=== PATIENT | male | born 1985 | race Caucasian/White ===

== ENCOUNTER 2020-10-12 10:01 | Emergency (ER) | payer SELFPAY ==
[2020-10-12] MEDS ORDERED: NA CHLORIDE 0.9% 1,000 ML ONE (10:22)
[2020-10-12] MEDS ORDERED: FENTANYL CITR 100 MCG/2 ML ONE ×2 (10:22→10:28)
[2020-10-12] MEDS ORDERED: ONDANSETRON 4 MG/2 ML VIAL ONE (10:28)
[2020-10-12] MEDS ORDERED: MIDAZOLAM HCL 2 MG/2 ML INJ ONE (10:31)
[2020-10-12] MEDS ORDERED: propofoL 200 MG/20 ML VIAL IV ONE (10:31)
--- NOTE | 2020-10-12 10:32 | RAD REPORT ---
EXAM DESCRIPTION: RAD - Ankle Left 2 View - 10/12/2020 10:20 am CLINICAL HISTORY: Left ankle pain FINDINGS: Extensive fracture involves the distal tibia and fibula with many bony fragments. Extensive dislocation involves the ankle joint.
--- NOTE | 2020-10-12 10:52 | EDPHYS ---
Physician Documentation [facility] Name: Ousmaen Bishop Age: 35 yrs Sex: Male : 1985 Arrival Date: 10/12/2020 Time: 10:03 Bed 2 Private MD: ED Physician Rogelio Napoles HPI: 10/12 10:03 This 35 yrs old Male presents to ER via Wheelchair with complaints of Trauma jmm Complaint, Leg Injury. 10:03 Trauma demographics: County: The injury occurred in [place]. Mechanism of injury: jmm Fall:. Associated injuries: The patient sustained left ankle. Onset: The symptoms/episode began/occurred acutely, just prior to arrival. This is a 35 year old male with no chronic medical conditions that presents to the ED with a deformity to the left ankle. Patient fell from a ladder approx 5 feet. Eversion noted to the left ankle. Historical: - Allergies: 10:34 No Known Allergies; em - PMHx: 10:34 None; em - PSHx: 10:34 left elbow; em - Immunization history:: Adult Immunizations not up to date. - Immunization history: Last tetanus immunization: - up to date. - Social history:: Smoking status: unknown. ROS: 10:03 Constitutional: Negative for fever, chills, and weight loss, Cardiovascular: Negative jmm for chest pain, palpitations, and edema, Respiratory: Negative for shortness of breath, cough, wheezing, and pleuritic chest pain. 10:03 MS/extremity: Positive for injury or acute deformity, pain, swelling. 10:03 All other systems are negative. Exam: 10:03 Head/Face: atraumatic. Eyes: EOMI, no conjunctival erythema appreciated ENT: Moist jmm Mucus Membranes Neck: Trachea midline, Supple Chest/axilla: Normal chest wall appearance and motion. Cardiovascular: Regular rate and rhythm. No edema appreciated Respiratory: Normal respirations, no respiratory distress appreciated Abdomen/GI: Non distended, soft Back: Normal ROM 10:03 Constitutional: The patient appears alert, awake, anxious, in obvious pain. 10:03 Musculoskeletal/extremity: the left foot is warm, obvious eversion deformity noted with the distal end of the tibia appreciated, dorsalis pulse is appreciated, < 2 sec dist carp refill, currently, NVI. 10:03 Skin: left medial ankle open. 10:03 Neuro: Orientation: is normal, Mentation: is normal, Memory: is normal. 10:03 Psych: Behavior/mood is pleasant, cooperative. Vital Signs: 10:07 BP 108 / 67; Pulse 93; Resp 24; Pulse Ox 99% on R/A; Pain 10/10; em 10:34 Weight 81.65 kg (R); Height 6 ft. 0 in. (182.88 cm) (R); em 10:48 Temp 99.1(O); em 10:48 BP 140 / 87; Pulse 74; Resp 18; Pulse Ox 100% on 2 lpm NC; Pain 10/10; em 11:10 BP 134 / 99; Pulse 63; Resp 18; Pulse Ox 100% ; sv 11:30 BP 134 / 84; Pulse 61; Resp 16; Pulse Ox 99% on R/A; em 10:34 Body Mass Index 24.41 (81.65 kg, 182.88 cm) em [place] Coma Score: 10:07 Eye Response: spontaneous(4). Verbal Response: oriented(5). Motor Response: obeys em commands(6). Total: 15. 10:48 Eye Response: spontaneous(4). Verbal Response: oriented(5). Motor Response: obeys em commands(6). Total: 15. Trauma Score (Adult): 10:07 Eye Response: spontaneous(1); Verbal Response: oriented(1); Motor Response: obeys em commands(2); Systolic BP: > 89 mm Hg(4); Respiratory Rate: 10 to 29 per min(4); [place] Score: 15; Trauma Score: 12 10:48 Eye Response: spontaneous(1); Verbal Response: oriented(1); Motor Response: obeys em commands(2); Systolic BP: > 89 mm Hg(4); Respiratory Rate: 10 to 29 per min(4); [place] Score: 15; Trauma Score: 12 11:10 Eye Response: spontaneous(1); Verbal Response: oriented(1); Motor Response: obeys sv commands(2); Systolic BP: > 89 mm Hg(4); Respiratory Rate: 10 to 29 per min(4); [place] Score: 15; Trauma Score: 12 MDM: 10:03 Patient medically screened. emily 10:51 Data reviewed: vital signs, nurses notes. Counseling: I had a detailed discussion with [facility] the patient and/or guardian regarding: the historical points, exam findings, and any diagnostic results supporting the discharge/admit diagnosis, radiology results, the need to transfer to another facility. ED course: Dr. Todd accepted without conference. 10/12 10:04 Order name: CBC with Diff; Complete Time: 10:58 [facility] 10/12 10:04 Order name: CMP; Complete Time: 10:58 [facility] 10/12 10:19 Order name: Ankle Left 2 View; Complete Time: 10:34 [facility] 10/12 10:04 Order name: Saline Lock; Complete Time: 10:29 [facility] 10/12 10:26 Order name: Posterior Leg Splint; Complete Time: 11:40 [facility] Administered Medications: 10:07 Drug: NS 0.9% 1000 ml Route: IV; Rate: 1000 ml; Site: left antecubital; em 11:30 Follow up: IV Status: Completed infusion; IV Intake: 1000ml em 10:07 Drug: fentaNYL (PF) 75 mcg Route: IVP; Site: left antecubital; em 10:10 Follow up: Response: No adverse reaction; No change in condition; Pain is unchanged, em physician notified 10:10 Drug: fentaNYL (PF) 100 mcg Route: IVP; Site: left antecubital; em 10:15 Follow up: Response: No adverse reaction; No change in condition; Pain is unchanged, em physician notified 10:10 Drug: Zofran (Ondansetron) 4 mg Route: IVP; Site: left antecubital; em 10:15 Follow up: Response: No adverse reaction em 10:16 Drug: Versed (midazolam) 2 mg Route: IVP; Site: left antecubital; em 10:20 Follow up: Response: No adverse reaction; No change in condition; Pain is unchanged, em physician notified 10:17 Drug: Versed (midazolam) 2 mg Route: IVP; Site: left antecubital; em 10:20 Follow up: Response: No adverse reaction; No change in condition; Pain is unchanged, em physician notified 10:20 Drug: Propofol 100 mg Route: IVP; Site: left antecubital; em 10:50 Follow up: Response: No adverse reaction; Marked relief of symptoms; Pain is decreased em 10:42 Drug: Tetanus-Diphtheria Toxoid Adult 0.5 ml {[employer] Inspector: [employer]. Exp: em 10/01/2021. Lot #: [id number]. } Route: IM; Site: left deltoid; 11:40 Follow up: Response: No adverse reaction em 10:45 Drug: Ancef (cefazolin) 1 grams Route: IVPB; Site: left antecubital; em 11:30 Follow up: IV Status: Completed infusion; IV Intake: 10ml em 10:53 Drug: Dilaudid (HYDROmorphone) 1 mg Route: IVP; Site: left antecubital; em 11:00 Follow up: Response: No adverse reaction; Marked relief of symptoms; Pain is decreased em 11:38 Drug: Propofol 60 mg Route: IVP; Site: left antecubital; em 11:50 Follow up: Response: No adverse reaction; Pain is unchanged, physician notified em 11:40 Drug: Dilaudid (HYDROmorphone) 0.5 mg Route: IVP; Site: left antecubital; em 11:50 Follow up: Response: No adverse reaction; Marked relief of symptoms; Pain is decreased em Disposition: 12:06 Co-signature as Attending Physician, Rogelio Napoles MD I agree with the assessment and kdr plan of care. Disposition: 10/12/20 10:52 Transfer ordered to [facility]. Diagnosis is Left Ankle Open Fracture . - Reason for transfer: Higher level of care. - Accepting physician is Dr. Todd. - Condition is Stable. - Problem is new. - Symptoms are unchanged. Signatures: Dispatcher [employer] EDID Lela Yuen Rogelio Napoles MD MD [facility] Boy Lema PA PA [facility] Steve Rea, RN RN em Corrections: (The following items were deleted from the chart) 10:19 10:05 Ankle Left 3 View+RAD.RAD.BRZ ordered. EDID EDMS 11:40 10:47 Labs - recollect needed ordered. bd em 11:56 10:52 10/12/2020 10:52 Transfer ordered to [facility]. Diagnosis is Left em Ankle Open Fracture . Reason for transfer: Higher level of care. Accepting physician is Dr. Todd. Condition is Stable. Problem is new. Symptoms are unchanged. [facility]
--- NOTE | 2020-10-12 10:52 | ER ---
Nurse's Notes [facility] Name: Ousmane Bishop Age: 35 yrs Sex: Male : 1985 Arrival Date: 10/12/2020 Time: 10:03 Bed 2 Private MD: Diagnosis: Left Ankle Open Fracture Presentation: 10/12 10:03 Chief complaint: Patient states: Fell 6 ft off of ladder onto feet. Obvious deformity em to L ankle area. Bone exposed. Small amount of bleeding noted at this time. 10:05 Coronavirus screen: At this time, unable to obtain information related to travel em outside the [place] Ebola Screen: No symptoms or risks identified at this time. Initial Sepsis Screen: Does the patient meet any 2 criteria? No. Patient's initial sepsis screen is negative. Does the patient have a suspected source of infection? Yes: Skin breakdown/wound. Risk Assessment: Do you want to hurt yourself or someone else? Patient reports no desire to harm self or others. Onset of symptoms was October 12, 2020. 10:07 Care prior to arrival: None. Mechanism of Injury: Fall from ladder approximately 6 em feet. Trauma event details: Injury occurred in the [facility], Injury occurred:. 10:07 Acuity: HAL 1 em 10:07 Method Of Arrival: Wheelchair em Trauma Activation: Physician: ED Physician; Name: Dony; Notified At: 10:01; Arrived At: 10:01 Physician: General Surgeon; Name: ; Notified At: 10:01; Arrived At: Physician: Radiology; Name: ; Notified At: 10:01; Arrived At: Physician: Respiratory; Name: ; Notified At: 10:01; Arrived At: Physician: Lab; Name: ; Notified At: 10:01; Arrived At: Historical: - Allergies: 10:34 No Known Allergies; em - PMHx: 10:34 None; em - PSHx: 10:34 left elbow; em - Immunization history:: Adult Immunizations not up to date. - Immunization history: Last tetanus immunization: - up to date. - Social history:: Smoking status: unknown. Screenin:05 Abuse screen: Denies threats or abuse. Nutritional screening: No deficits noted. em Tuberculosis screening: No symptoms or risk factors identified. Fall Risk None identified. Primary Survey: 10:07 NO uncontrolled hemorrhage observed. A: The patient is alert. Airway: patent, No em supplemental oxygen in use on arrival. Oral cavity: clear, Trachea midline. Breathing/Chest: Respiratory pattern: regular, Respiratory effort: spontaneous, unlabored. Disability Alert. Exposure/Environment: There is no evidence of uncontrolled external bleeding. Obvious injury(ies) are noted at this time: obvious bony deformity noted to L ankle. Bone exposed. 11:00 Circulation: Cardiac rhythm: sinus rhythm Pulses: dopplerable left dorsalis pedis em artery Skin color: pink, Skin temperature: warm. Reassessment Airway Airway Patent Breathing/Chest Respiratory pattern Regular Circulation Pulses Dopplerable Other in the left foot. Assessment: 10:05 General: Appears distressed, uncomfortable, Behavior is cooperative, crying, restless. em Pain: Complains of pain in left foot Pain currently is 10 out of 10 on a pain scale. Neuro: Level of Consciousness is awake, alert, obeys commands, Oriented to person, place, time, situation. Cardiovascular: Capillary refill < 3 seconds in bilateral fingers pulse not palpable on left foot, pulse found with Doppler and marked. Respiratory: Airway is patent Respiratory effort is even, Respiratory pattern is tachypnea. Derm: Wound noted open fracture noted to left foot. Musculoskeletal: Circulation, motion, and sensation intact. Capillary refill < 3 seconds, Bony deformity noted of left foot. 10:09 Reassessment: XRAY at bedside. em 10:22 Reassessment: LUIS ALBERTO Brunson attempted to reduce fracture, unsuccessful at this time, Dr. taylor Napoles notified. 10:38 Reassessment: reports pain is coming back, provider notified, received new medication em orders. 10:53 Reassessment: report given to life flight, pending transportation. em 11:03 Reassessment: report given to MARCIA Cuellar at [facility], pending life flight. em 11:35 Reassessment: applied posterior and stir up splint to left foot with assistance from LUIS ALBERTO Cobos and Moustapha light rail signal technician. 11:45 Reassessment: report given to [facility] nurse. em Vital Signs: 10:07 BP 108 / 67; Pulse 93; Resp 24; Pulse Ox 99% on R/A; Pain 10/10; em 10:34 Weight 81.65 kg (R); Height 6 ft. 0 in. (182.88 cm) (R); em 10:48 Temp 99.1(O); em 10:48 BP 140 / 87; Pulse 74; Resp 18; Pulse Ox 100% on 2 lpm NC; Pain 10/10; em 11:10 BP 134 / 99; Pulse 63; Resp 18; Pulse Ox 100% ; sv 11:30 BP 134 / 84; Pulse 61; Resp 16; Pulse Ox 99% on R/A; em 10:34 Body Mass Index 24.41 (81.65 kg, 182.88 cm) em [place] Coma Score: 10:07 Eye Response: spontaneous(4). Verbal Response: oriented(5). Motor Response: obeys em commands(6). Total: 15. 10:48 Eye Response: spontaneous(4). Verbal Response: oriented(5). Motor Response: obeys em commands(6). Total: 15. Trauma Score (Adult): 10:07 Eye Response: spontaneous(1); Verbal Response: oriented(1); Motor Response: obeys em commands(2); Systolic BP: > 89 mm Hg(4); Respiratory Rate: 10 to 29 per min(4); [place] Score: 15; Trauma Score: 12 10:48 Eye Response: spontaneous(1); Verbal Response: oriented(1); Motor Response: obeys em commands(2); Systolic BP: > 89 mm Hg(4); Respiratory Rate: 10 to 29 per min(4); [place] Score: 15; Trauma Score: 12 11:10 Eye Response: spontaneous(1); Verbal Response: oriented(1); Motor Response: obeys sv commands(2); Systolic BP: > 89 mm Hg(4); Respiratory Rate: 10 to 29 per min(4); [place] Score: 15; Trauma Score: 12 ED Course: 10:03 Patient arrived in ED. ss 10:03 Boy Lema PA is PHCP. jmm 10:03 Rogelio Napoles MD is Attending Physician. jmm 10:05 Arm band placed on. em 10:06 Steve Rea, MARCIA is Primary Nurse. em 10:07 Patient has correct armband on for positive identification. Placed in gown. Bed in low em position. Pulse ox on. NIBP on. 10:07 Inserted saline lock: 20 gauge in left antecubital area, using aseptic technique. Blood em collected. Patient maintains SpO2 saturation greater than 95% on room air. Thermoregulation: warm blanket given to patient. 10:08 Triage completed. em 10:18 Primary Nurse role handed off by Steve Rea, RN em 10:19 Steve Rea, RN is Primary Nurse. em 10:20 Ankle Left 2 View In Process Unspecified. EDMS 11:30 Inserted saline lock: 20 gauge in right antecubital area, using aseptic technique. em 11:50 No provider procedures requiring assistance completed. Patient transferred, IV remains em in place. Administered Medications: 10:07 Drug: NS 0.9% 1000 ml Route: IV; Rate: 1000 ml; Site: left antecubital; em 11:30 Follow up: IV Status: Completed infusion; IV Intake: 1000ml em 10:07 Drug: fentaNYL (PF) 75 mcg Route: IVP; Site: left antecubital; em 10:10 Follow up: Response: No adverse reaction; No change in condition; Pain is unchanged, em physician notified 10:10 Drug: fentaNYL (PF) 100 mcg Route: IVP; Site: left antecubital; em 10:15 Follow up: Response: No adverse reaction; No change in condition; Pain is unchanged, em physician notified 10:10 Drug: Zofran (Ondansetron) 4 mg Route: IVP; Site: left antecubital; em 10:15 Follow up: Response: No adverse reaction em 10:16 Drug: Versed (midazolam) 2 mg Route: IVP; Site: left antecubital; em 10:20 Follow up: Response: No adverse reaction; No change in condition; Pain is unchanged, em physician notified 10:17 Drug: Versed (midazolam) 2 mg Route: IVP; Site: left antecubital; em 10:20 Follow up: Response: No adverse reaction; No change in condition; Pain is unchanged, em physician notified 10:20 Drug: Propofol 100 mg Route: IVP; Site: left antecubital; em 10:50 Follow up: Response: No adverse reaction; Marked relief of symptoms; Pain is decreased em 10:42 Drug: Tetanus-Diphtheria Toxoid Adult 0.5 ml {Civil Engineering Intern: [employer]. Exp: em 10/01/2021. Lot #: [id number]. } Route: IM; Site: left deltoid; 11:40 Follow up: Response: No adverse reaction em 10:45 Drug: Ancef (cefazolin) 1 grams Route: IVPB; Site: left antecubital; em 11:30 Follow up: IV Status: Completed infusion; IV Intake: 10ml em 10:53 Drug: Dilaudid (HYDROmorphone) 1 mg Route: IVP; Site: left antecubital; em 11:00 Follow up: Response: No adverse reaction; Marked relief of symptoms; Pain is decreased em 11:38 Drug: Propofol 60 mg Route: IVP; Site: left antecubital; em 11:50 Follow up: Response: No adverse reaction; Pain is unchanged, physician notified em 11:40 Drug: Dilaudid (HYDROmorphone) 0.5 mg Route: IVP; Site: left antecubital; em 11:50 Follow up: Response: No adverse reaction; Marked relief of symptoms; Pain is decreased em Intake: 11:10 PO: 0ml; Total: 0ml. sv 11:30 IV: 1000ml; Total: 1000ml. em 11:30 IV: 10ml; Total: 1010ml. em 11:40 IV: 1000ml (IV Fluid); Total: 2010ml. em Output: 11:10 Urine: 0ml; Total: 0ml. sv Outcome: 10:52 ER care complete, transfer ordered by . emily 11:48 Transferred by helicopter to [facility], Transfer form completed. X-rays sent em w/ patient. 11:48 Condition: stable 11:48 Patient's length of stay was not longer than 2 hours. 11:56 Patient left the ED. em Signatures: Dispatcher [employer] Pat Carranza, RN RN sv Boy Lema PA PA jmm Munoz, Edgar, RN RN em Kelley Sesay RN RN ss Corrections: (The following items were deleted from the chart) 10:11 10:07 Chief complaint: Patient states: Fell 6 ft off of ladder onto feet. Obvious em deformity to L ankle area. Bone exposed. Small amount of bleeding noted at this time. em
[2020-10-12 10:53] LABS: Absolute Lymphocytes (CBC) 2.3 K/uL (0.7-4.9); Basophils % 0.5 % (0-1.3); Hematocrit 46.1 % (39.6-49.0); Lymphocytes % 31.8 % (15.3-44.8); MPV 10.3 fL (7.6-11.3); RBC Red Blood Cell Count 5.21 M/uL (4.33-5.43)
[2020-10-12] MEDS ORDERED: HYDROMORPHONE HCL 0.5 MG/0.5 ML INJ ONE ×3 (10:55→11:33)
[2020-10-12] MEDS ORDERED: TETANUS & DIPHTHERIA TOX,ADULT 0.5 ML VIAL ONE (10:55)
[2020-10-12 10:56] LABS: Albumin 4.1 g/dL (3.4-5.0); Bilirubin Total 0.4 mg/dL (0.2-1.0); Potassium 3.5 mmol/L (3.5-5.1); Protein, Total 7.3 g/dL (6.4-8.2)
[2020-10-12] MEDS ORDERED: CEFAZOLIN/SWI 1gm 1 GM/10 ML SYR ONE (10:56)
[2020-10-12 12:06] VITALS: TEMP 99.1
[2020-10-12 12:10] VITALS: BP 134/84; O2SAT 99
== END 2020-10-12 11:56 | disposition short-term general hospital (02) ==
LOC: ER 10:01
PROC: 2W3RX1Z Immobilization of Left Lower Leg using Splint (ICD-10-PCS; principal; 2020-10-12)
DX: S82.892B Other fracture of left lower leg, initial encounter for open fracture type I or II (principal); W11.XXXA Fall on and from ladder, initial encounter; Y92.89 Other specified places as the place of occurrence of the external cause; Z23 Encounter for immunization
CPT/HCPCS: 36415; 80053; 85025; 90471; 90714; 96361; 96365; 96375; 99291; J0690; J1170; J2250; J2405; J2704; J3010; J7030

== ENCOUNTER 2023-02-27 11:41 | Emergency (ER) | payer BC, SELFPAY ==
--- OUTSIDE RECORDS SUMMARY | 2023-02-27 11:47 | XMS REPORT | Continuity of Care Document ---
:1985 Author Organization [facility] t Address [address] [place] [address] Care Team Providers Name Role Phone No , Pcp Primary Care Physician Unavailable GUALBERTO TODD Attending Clinician Unavailable CANDIS TREJO Attending Clinician Unavailable SIMRAN DUDLEY Attending Clinician Unavailable COLLETTE CHAVEZ Attending Clinician Unavailable Anca RODRIGUES-Simran Banerjee Attending Clinician LAB90 Attending Clinician Unavailable Collette Chavez MD Attending Clinician [phone] Erika Castano Attending Clinician GUALBERTO TODD Attending Clinician Unavailable Gualberto Todd Attending Clinician GUALBERTO OTDD M.D. Attending Clinician Unavailable WILLIAMS DUARTE Attending Clinician Unavailable Williams Duarte Attending Clinician VICENTA CAGLE Attending Clinician Unavailable Vicenta Cagle MD Attending Clinician GUALBERTO TODD Admitting Clinician Unavailable Gualberto Todd Admitting Clinician VICENTA CAGLE Admitting Clinician Unavailable Vicenta Cagle MD Admitting Clinician Payers Payer Name Policy Type Policy Number Effective Date Expiration Date Aneesh CASTRO SEYBOLD - [id number] 2021 [employer] 00:00:00 [employer] [facility] [id number] 2021 2021 [facility] 00:00:00 00:00:00 [facility] OF 9 [id number] 2021 [place] (ERS-[employer] 00:00:00 CAPITATED) Problems Condition Condition Condition Status Onset Resolution Last Treating Co mments Source Name Details Category Date Date Treatment Clinician Date SEGUNDO SEGUNDO Disease Active 2020-06 Rashmi (generaliz (generaliz 0- Se ybold ed anxiety ed anxiety 00:00: disorder) disorder) 00 - Not - Not Controlled Controlled Depression Depression Disease Active 2020-06 Grey elsevasquez 0-01 Seybold 00:00: 00 Open Open Disease Active 2020-06 Rashmi displaced displaced 0-01 Seyb old trimalleol trimalleol 00:00: ar ar 00 fracture fracture of left of left lower leg, lower leg, type IIIA, type IIIA, IIIB, or IIIB, or IIIC, with IIIC, with routine routine healing healing S82.852C S82.852C Diagnosis Active 2021-02-24 Memoria Active 11-02 16:34:00 l 11/02/2020 00:00: Carlos huffman [address] Open Open Disease Active [place] displaced displaced 5-18 [facility] trimalleol trimalleol 00:00: ar ar 00 fracture fracture of left of left lower leg, lower leg, type IIIA, type IIIA, IIIB, or IIIB, or IIIC IIIC OPEN OPEN Diagnosis Active 2021-02-24 Mem oria FRACTURE FRACTURE 10-12 16:35:00 l Active 00:00: Armando 10/12/2020 [facility] ALFREDO ALFREDO Diagnosis Active 2021-02-24 Memoria BILLING BILLING/10-12 16:34:00 l 64 64 Active 00:00: Armando 10/12/2020 [facility] Fracture Fracture Problem Active 2020-11-14 Memoria of bone of bone 07:16:55 l (disorder) (disorder) He rmann Active Problem 11/14/2020 Lt ankle [facility] Injury of Injury of Problem Active 2020-11-14 Memoria kidney kidney 07:16:55 l (disorder) (disorder) He rmann Active Problem 11/14/2020 [facility] Type III Type III Problem Active [facility] open open Physici fracture fracture ans of left of left ankle, ankle, initial initial encounter encounter Allergies, Adverse Reactions, Alerts This patient has no known allergies or adverse reactions. Social History Social Habit Start Date Stop Date Quantity Comments Source History of Cigarette Smoker [facility] tobacco use Exposure to Not sure Rashmi carpenter SARS-CoV-2 (event) Tobacco use and 2021-03-17 2021-03-17 Smokeless tobacco Ke jayeaide ybold exposure 00:00:00 00:00:00 non-user Alcohol intake 2020-11-23 2020-11-23 Current drinker [facility] 00:00:00 00:00:00 of alcohol (finding) Alcohol Comment 2020-11-23 2020-11-23 OCC. [facility] 00:00:00 00:00:00 Tobacco Comment 2020-11-01 2020-11-01 SMOKING SINCE THE [facility] 00:00:00 00:00:00 AGE OF 18 YO Social History 2020-10-13 2020-10-13 [facility] matt 03:54:12 03:54:12 Sex [birth year] At [birth year] [facility] 00:00:00 00:00:00 Smoking Status Start Date Stop Date Source Tobacco smoking consumption unknown [facility] Never smoked tobacco Rashmi Seyb old Smokes tobacco daily 2020-11-01 00:00:00 [facility] Medications Ordered Filled Start Stop Current Ordering Indication Dosage Frequency Signature Comments Components Source Medication Medication Date Date Medication? Clinician (SIG) Name Name Escitalopra 2020-06 Yes [id number] 10mg Take 1 Rashmi m Oxalate 0-01 tablet (10 Seyb old 10 MG oral 00:00: mg total) Tablet 00 by mouth daily Take 1 tablet (10 mg total) by mouth daily Take 1 tab for 1 week then take 2 tabs daily Escitalopra 2020-06- No [id number] 10mg Take 1 Rashmi m Oxalate 0-01 10-01 tablet (10 Sey bold 10 MG oral 00:00: 00:00 mg total) Tablet 00 :00 by mouth daily Take 1 tab for 1 week then take 2 tabs daily Escitalopra 2020-06- No [id number] 10mg Take 1 Rashmi sneed Oxalate 0-03-17 tablet (10 Sey bold 10 MG oral 00:00: 00:00 mg total) Tablet 00 :00 by mouth daily Escitalopra 2020-06- No [id number] 10mg Take 1 Rashmi sneed Oxalate 0-03-17 tablet (10 Sey bold 10 MG oral 00:00: 00:00 mg total) Tablet 00 :00 by mouth daily Take 1 tab for 1 week then take 2 tabs daily Methocarbam Yes 750mg Take 750 K elsey ol 750 MG 6-09 mg by Seybold oral Tablet 00:00: mouth 3 00 times daily Methocarbam Yes [id number] 750mg Take 750 Rashmi ol 750 MG 6-09 mg by Seybold oral Tablet 00:00: mouth 3 00 times daily traMADol Yes [id number] 50mg Q6H Take 1 UT (Ultram) 50 6-09 tablet (50 He alth MG tablet 00:00: mg total) 00 by mouth every 6 (six) hours. Alternate with Tylenol gabapentin Yes [id number] 300mg Q.[id number] Take 1 UT (Neurontin) 6-09 [id number] capsule Health 300 MG 00:00: 3D (300 mg capsule 00 total) by mouth 3 (three) times a day. methocarbam Yes [id number] 750mg Q.[id number] Take 1 UT ol 6-09 [id number] tablet Health (Robaxin) 00:00: 3D (750 mg 750 MG 00 total) by tablet mouth 3 (three) times a day for 14 days. traMADol Yes [id number] 50mg Q6H Take 1 UT (Ultram) 50 6-09 tablet (50 He alth MG tablet 00:00: mg total) 00 by mouth every 6 (six) hours. Alternate with Tylenol gabapentin Yes [id number] 300mg Q.[id number] Take 1 UT (Neurontin) 6-09 [id number] capsule Health 300 MG 00:00: 3D (300 mg capsule 00 total) by mouth 3 (three) times a day. methocarbam 2020-0 Yes [id number] 750mg Q.[id number] Take 1 UT ol 6-09 [id number] tablet Health (Robaxin) 00:00: 3D (750 mg 750 MG 00 total) by tablet mouth 3 (three) times a day for 14 days. traMADol 2020-0 Yes [id number] 50mg Q6H Take 1 UT (Ultram) 50 6-09 tablet (50 He alth MG tablet 00:00: mg total) 00 by mouth every 6 (six) hours. Alternate with Tylenol gabapentin 2020-0 Yes [id number] 300mg Q.[id number] Take 1 UT (Neurontin) - [id number] capsule Health 300 MG 00:00: 3D (300 mg capsule 00 total) by mouth 3 (three) times a day. methocarbam 2020-0 Yes [id number] 750mg Q.[id number] Take 1 UT ol - [id number] tablet Health (Robaxin) 00:00: 3D (750 mg 750 MG 00 total) by tablet mouth 3 (three) times a day for 14 days. traMADol 2020-0 Yes [id number] 50mg Q6H Take 1 UT (Ultram) 50 6-09 tablet (50 He alth MG tablet 00:00: mg total) 00 by mouth every 6 (six) hours. Alternate with Tylenol traMADol 2020-0 Yes [id number] 50mg Q6H Take 1 UT (Ultram) 50 6-09 tablet (50 He alth MG tablet 00:00: mg total) 00 by mouth every 6 (six) hours. Alternate with Tylenol traMADol 2020-0 Yes [id number] 50mg Q6H Take 1 UT (Ultram) 50 6-09 tablet (50 He alth MG tablet 00:00: mg total) 00 by mouth every 6 (six) hours. Alternate with Tylenol methocarbam 2020-0 Yes [id number] 750mg Q.[id number] Take 1 UT ol 6-09 [id number] tablet Health (Robaxin) 00:00: 3D (750 mg 750 MG 00 total) by tablet mouth 3 (three) times a day for 14 days. gabapentin 2020- No [id number] 300mg Q.[id number] Take 1 UT (Neurontin) 11-23- [id number] capsule Health 300 MG 00:00: 04:59 3D (300 mg capsule 00 :00 total) by mouth 3 (three) times a day. gabapentin 2020- No [id number] 300mg Q.[id number] Take 1 UT (Neurontin) 11-23 [id number] capsule Health 300 MG 00:00: 04:59 3D (300 mg capsule 00 :00 total) by mouth 3 (three) times a day. gabapentin 2020- No [id number] 300mg Q.[id number] Take 1 UT (Neurontin) 11-23 [id number] capsule Health 300 MG 00:00: 04:59 3D (300 mg capsule 00 :00 total) by mouth 3 (three) times a day. methocarbam 2020- No [id number] 750mg Q.[id number] Take 1 UT ol 11-23 [id number] tablet Health (Robaxin) 00:00: 04:59 3D (750 mg 750 MG 00 :00 total) by tablet mouth 3 (three) times a day for 14 days. methocarbam 2020- No [id number] 750mg Q.[id number] Take 1 UT ol 11-23 [id number] tablet Health (Robaxin) 00:00: 04:59 3D (750 mg 750 MG 00 :00 total) by tablet mouth 3 (three) times a day for 14 days. Docusate 2020-0 No 100 mg, 1 Dangelo kati Sodium 100 5-27 cap, l MG Oral 22:00: Route: PO, Herm huong Capsule 00 Drug form: CAP, BID, Dosing Weight 90.5, kg, Start date: 11/10/20 17:00:00 CDT, Duration: 30 day, Stop date: 12/10/20 9:00:00 CDT Docusate 2020-0 No 100 mg, 1 Dangelo kati Sodium 100 5-27 cap, l MG Oral 22:00: Route: PO, Herm huong Capsule 00 Drug form: CAP, BID, Dosing Weight 90.5, kg, Start date: 11/10/20 17:00:00 CDT, Duration: 30 day, Stop date: 12/10/20 9:00:00 CDT Methocarbam 2021-0 No 500 mg, Mem oria ol 5-27 Route: PO, l 17:00: Q6H, Big Pool 00 Dosing Weight 90.5, kg, Start date: 11/10/20 12:00:00 CDT, Duration: 30 day, Stop date: 12/10/20 6:00:00 CDT Methocarbam 2021-0 No 500 mg, Mem oria ol 5-27 Route: PO, l 17:00: Q6H, Dosing Weight 90.5, kg, Start date: 11/10/20 12:00:00 CDT, Duration: 30 day, Stop date: 12/10/20 6:00:00 CDT gabapentin 2021-0 No 300 mg, 1 Me moria 300 MG Oral 5-27 cap, l Capsule 15:00: Route: PO, Herm huong Drug form: CAP, Q8Hnow, Dosing Weight 90.5, kg, Start date: 11/10/20 10:00:00 CDT, Duration: 30 day, Stop date: 12/10/20 2:00:00 CDT gabapentin 2021-0 No 300 mg, 1 Me moria 300 MG Oral 5-27 cap, l Capsule 15:00: Route: PO, Herm huong 00 Drug form: CAP, Q8Hnow, Dosing Weight 90.5, kg, Start date: 11/10/20 10:00:00 CDT, Duration: 30 day, Stop date: 12/10/20 2:00:00 CDT Tramadol 2021-0 No 50 mg, Memoria 5-27 Route: PO, l 14:43: Drug form: Big Pool 00 TAB, Q6H, Dosing Weight 90.5, kg, PRN Pain Score 7-10, Start date: 11/10/20 9:43:00 CDT, Duration: 30 day, Stop date: 12/10/20 9:42:00 CDT Tramadol 2021-0 No 50 mg, Memoria 5-27 Route: PO, l 14:43: Drug form: Armando 00 TAB, Q6H, Dosing Weight 90.5, kg, PRN Pain Score 7-10, Start date: 11/10/20 9:43:00 CDT, Duration: 30 day, Stop date: 12/10/20 9:42:00 CDT Hydralazine No Notes: Dangelo kati 5-27 (Same as: l 14:21: Apresoline Armando ) Push over 5 minutes Labetalol No 10 mg, 2 Dangelo kati 5-27 mL, Route: l 14:21: IVP, Drug Big Pool 00 form: INJ, Q5Min, Dosing Weight 90.5, kg, PRN Elevated BP, Start date: 11/10/20 9:21:00 CDT, Duration: 5 doses or times, Stop date: Limited # of times, 0 Acetaminoph No 1,000 mg, M emoria en - Route: PO, l 14:21: Drug form: Big Pool 00 TAB, ONCE, Dosing Weight 90.5, kg, PRN Pain Score 1-3, Start date: 11/10/20 9:21:00 CDT Oxycodone No Notes: Memori a Hydrochlori -27 (Same as: l de 5 MG 14:21: Roxicodone Herm huong Oral Tablet ) Hydromorpho No Notes: Dangelo kati ne 5-27 Same as l 14:21: Dilaudid Flumazenil No Notes: Memor ia 5-27 (Same as: l 14:21: Romazicon) Naloxone No Notes: Memoria 5-27 Same as l 14:21: Narcan Ondansetron No Notes: Dangelo kati 5-27 (Same as: l 14:21: Zofran) Armando 00 MEDICATION WASTE Product Size: 4 mg Product Wasted: ___ mg Hydralazine No Notes: Dangelo kati 5-27 (Same as: l 14:21: Apresoline Armando ) Push over 5 minutes Labetalol No 10 mg, 2 Dangelo kati 5-27 mL, Route: l 14:21: IVP, Drug Big Pool form: INJ, Q5Min, Dosing Weight 90.5, kg, PRN Elevated BP, Start date: 11/10/20 9:21:00 CDT, Duration: 5 doses or times, Stop date: Limited # of times, 0 Acetaminoph No 1,000 mg, Emiliana sierra en 11-10 Route: PO, l 14:21: Drug form: TAB, ONCE, Dosing Weight 90.5, kg, PRN Pain Score 1-3, Start date: 11/10/20 9:21:00 CDT Oxycodone No Notes: Memori a Hydrochlori 11-10 (Same as: l de 5 MG 14:21: Roxicodone Herm huong Oral Tablet ) Hydromorpho No Notes: Dangelo kati ne 11-10 Same as l 14:21: Dilaudid Flumazenil No Notes: Memor ia 11-10 (Same as: l 14:21: Romazicon) Naloxone No Notes: Memoria - Same as l 14:21: Narcan Ondansetron No Notes: Dangelo kati - (Same as: l 14:21: Zofran) MEDICATION WASTE Product Size: 4 mg Product Wasted: ___ mg midazolam No Route: IV, Me moria (ANES) - Drug form: l 14:10: SOLN, ONCE, Stop date: 11/10/20 9:10:00 CDT lidocaine No Route: IV, Me moria (ANES) - Drug form: l 14:10: INJ, ONCE, Stop date: 11/10/20 9:10:00 CDT propofol No Route: IV, Mem oria (ANES) - Drug form: l 14:10: INJ, ONCE, Stop date: 11/10/20 9:10:00 CDT succinylcho No Route: IV, Memoria line (ANES) - Drug form: l 14:10: INJ, ONCE, Stop date: 11/10/20 9:10:00 CDT fentaNYL 2020-0 No Route: IV, Mem oria (ANES) 5- Drug form: l 14:10: INJ, ONCE, Stop date: 11/10/20 9:10:00 CDT ondansetron 0 No Route: IV, Memoria (ANES) 5- Drug form: l 14:10: INJ, ONCE, Stop date: 11/10/20 9:10:00 CDT dexamethaso 0 No Route: IV, Memoria ne (ANES) 5- Drug form: l 14:10: INJ, ONCE, Stop date: 11/10/20 9:10:00 CDT midazolam 2020-0 No Route: IV, Me moria (ANES) 5- Drug form: l 14:10: SOLN, ONCE, Stop date: 11/10/20 9:10:00 CDT lidocaine 2020-0 No Route: IV, Me moria (ANES) 5- Drug form: l 14:10: INJ, ONCE, Stop date: 11/10/20 9:10:00 CDT propofol 0 No Route: IV, Mem oria (ANES) 5- Drug form: l 14:10: INJ, ONCE, Stop date: 11/10/20 9:10:00 CDT succinylcho No Route: IV, Memoria line (ANES) - Drug form: l 14:10: INJ, ONCE, Stop date: 11/10/20 9:10:00 CDT fentaNYL 2020-0 No Route: IV, Mem oria (ANES) 5- Drug form: l 14:10: INJ, ONCE, Stop date: 11/10/20 9:10:00 CDT ondansetron 0 No Route: IV, Memoria (ANES) 5- Drug form: l 14:10: INJ, ONCE, Stop date: 11/10/20 9:10:00 CDT dexamethaso 2020-0 No Route: IV, Memoria ne (ANES) 5- Drug form: l 14:10: INJ, ONCE, Armando Stop date: 11/10/20 9:10:00 CDT Isolyte S No Route: IV, Me moria PH 7.4 11-10 Total l (ANES) 1000 13:34: Volume: Her cervantes mL 00 1,000, Start date: 11/10/20 8:34:00 CDT, Stop date: 11/10/20 9:34:00 CDT Isolyte S No Route: IV, Me moria PH 7.4 11-10 Total l (ANES) 1000 13:34: Volume: Her cervantes mL 00 1,000, Start date: 11/10/20 8:34:00 CDT, Stop date: 11/10/20 9:34:00 CDT Methocarbam 2020-0 Yes Q6H, 0 Dangelo kati ol - Refill(s) l 11:31: Methocarbam 2020-0 Yes Q6H, 0 Dangelo kati ol -27 Refill(s) l 11:31: Armando 00 Isolyte S No Notes: Memori a PH 7.4 11-10 (Same as: l 1,000 mL 11:16: Isolyte S Herm huong 00 PH7.4, Normosol-R PH 7.4, Plasma-Lyt e A ) Acetaminoph No 1,000 mg, M emoria en 11-10 Route: PO, l 11:16: Drug form: Armando 00 TAB, PRE OP, Dosing Weight 81.818, kg, Priority: NOW, Start date: 11/10/20 6:16:00 CDT, Duration: 1 doses or times Isolyte S No Notes: Memori a PH 7.4 11-10 (Same as: l 1,000 mL 11:16: Isolyte S Herm huong 00 PH7.4, Normosol-R PH 7.4, Plasma-Lyt e A ) Acetaminoph No 1,000 mg, M emoria en 11-10 Route: PO, l 11:16: Drug form: Big Pool 00 TAB, PRE OP, Dosing Weight 81.818, kg, Priority: NOW, Start date: 11/10/20 6:16:00 CDT, Duration: 1 doses or times Gabapentin 2020-0 Yes 300mg Take 300 Ke lsey 300 MG oral 5-27 mg by Seybold Capsule 00:00: mouth 3 00 times daily Methocarbam 2020-0 Yes 500mg Take 500 K elsey ol 500 MG 5-27 mg by Seybold oral Tablet 00:00: mouth 4 00 times daily Tramadol 2020-0 Yes 50mg Take 50 mg Jeff sey HCl 50 MG 5-27 by mouth Seybol d oral Tablet 00:00: every 6 00 (six) hours Gabapentin 2020-0 Yes [id number] 300mg Take 300 Rashmi 300 MG oral 5-27 mg by Seybold Capsule 00:00: mouth 3 00 times daily Methocarbam 2020-0 Yes [id number] 500mg Take 500 Rashmi ol 500 MG 5-27 mg by Seybold oral Tablet 00:00: mouth 4 00 times daily Tramadol 2020-0 Yes [id number] 50mg Take 50 mg Rashmi HCl 50 MG 5-27 by mouth Seybol d oral Tablet 00:00: every 6 00 (six) hours methocarbam 2020-0 Yes [id number] 500mg Q.25D Take 1 UT ol 5-27 tablet Health (Robaxin) 00:00: (500 mg 500 MG 00 total) by tablet mouth 4 (four) times a day for 10 days. traMADol 2020-0 Yes [id number] 50mg Q6H Take 1 UT (Ultram) 50 5-27 tablet (50 He alth MG tablet 00:00: mg total) 00 by mouth every 6 (six) hours. Alternate with Tylenol methocarbam 2020-0 Yes [id number] 500mg Q.25D Take 1 UT ol 5-27 tablet Health (Robaxin) 00:00: (500 mg 500 MG 00 total) by tablet mouth 4 (four) times a day for 10 days. traMADol 2020-0 Yes [id number] 50mg Q6H Take 1 UT (Ultram) 50 5-27 tablet (50 He alth MG tablet 00:00: mg total) 00 by mouth every 6 (six) hours. Alternate with Tylenol methocarbam 2020-0 Yes [id number] 500mg Q.25D Take 1 UT ol 5-27 tablet Health (Robaxin) 00:00: (500 mg 500 MG 00 total) by tablet mouth 4 (four) times a day for 10 days. traMADol 1-0 Yes [id number] 50mg Q6H Take 1 UT (Ultram) 50 5-27 tablet (50 He alth MG tablet 00:00: mg total) 00 by mouth every 6 (six) hours. Alternate with Tylenol methocarbam 2020-0 Yes [id number] 500mg Q.25D Take 1 UT ol 5-27 tablet Health (Robaxin) 00:00: (500 mg 500 MG 00 total) by tablet mouth 4 (four) times a day for 10 days. traMADol 2020-0 Yes [id number] 50mg Q6H Take 1 UT (Ultram) 50 5-27 tablet (50 He alth MG tablet 00:00: mg total) 00 by mouth every 6 (six) hours. Alternate with Tylenol traMADol 2020-0 Yes [id number] 50mg Q6H Take 1 UT (Ultram) 50 5-27 tablet (50 He alth MG tablet 00:00: mg total) 00 by mouth every 6 (six) hours. Alternate with Tylenol methocarbam 2020-0 Yes [id number] 500mg Q.25D Take 1 UT ol 5-27 tablet Health (Robaxin) 00:00: (500 mg 500 MG 00 total) by tablet mouth 4 (four) times a day for 10 days. traMADol 1-0 Yes [id number] 50mg Q6H Take 1 UT (Ultram) 50 5-27 tablet (50 He alth MG tablet 00:00: mg total) 00 by mouth every 6 (six) hours. Alternate with Tylenol methocarbam 1-0 Yes [id number] 500mg Q.25D Take 1 UT ol 5-27 tablet Health (Robaxin) 00:00: (500 mg 500 MG 00 total) by tablet mouth 4 (four) times a day for 10 days. traMADol 2021-0 Yes [id number] 50mg Q6H Take 1 UT (Ultram) 50 5-27 tablet (50 He alth MG tablet 00:00: mg total) 00 by mouth every 6 (six) hours. Alternate with Tylenol methocarbam 2021-0 Yes [id number] 500mg Q.25D Take 1 UT ol 5-27 tablet Health (Robaxin) 00:00: (500 mg 500 MG 00 total) by tablet mouth 4 (four) times a day for 10 days. traMADol Yes [id number] 50mg Q6H Take 1 UT (Ultram) 50 5-27 tablet (50 He alth MG tablet 00:00: mg total) 00 by mouth every 6 (six) hours. Alternate with Tylenol methocarbam Yes [id number] 500mg Q.25D Take 1 UT ol 5-27 tablet Health (Robaxin) 00:00: (500 mg 500 MG 00 total) by tablet mouth 4 (four) times a day for 10 days. traMADol Yes [id number] 50mg Q6H Take 1 UT (Ultram) 50 5-27 tablet (50 He alth MG tablet 00:00: mg total) 00 by mouth every 6 (six) hours. Alternate with Tylenol gabapentin 2021- No [id number] 300mg Q.[id number] Take 1 UT (Neurontin) 11-10- [id number] capsule Health 300 MG 00:00: 04:59 3D (300 mg capsule 00 :00 total) by mouth 3 (three) times a day. gabapentin 2021- No [id number] 300mg Q.[id number] Take 1 UT (Neurontin) 11-10- [id number] capsule Health 300 MG 00:00: 04:59 3D (300 mg capsule 00 :00 total) by mouth 3 (three) times a day. gabapentin 2021- No [id number] 300mg Q.[id number] Take 1 UT (Neurontin) 11-10- [id number] capsule Health 300 MG 00:00: 04:59 3D (300 mg capsule 00 :00 total) by mouth 3 (three) times a day. gabapentin 2021- No [id number] 300mg Q.[id number] Take 1 UT (Neurontin) 11-10- [id number] capsule Health 300 MG 00:00: 04:59 3D (300 mg capsule 00 :00 total) by mouth 3 (three) times a day. gabapentin 2021- No [id number] 300mg Q.[id number] Take 1 UT (Neurontin) 11-10- [id number] capsule Health 300 MG 00:00: 04:59 3D (300 mg capsule 00 :00 total) by mouth 3 (three) times a day. gabapentin 2021- No [id number] 300mg Q.[id number] Take 1 UT (Neurontin) 11-10- [id number] capsule Health 300 MG 00:00: 04:59 3D (300 mg capsule 00 :00 total) by mouth 3 (three) times a day. gabapentin 2021- No [id number] 300mg Q.[id number] Take 1 UT (Neurontin) 11-10- [id number] capsule Health 300 MG 00:00: 04:59 3D (300 mg capsule 00 :00 total) by mouth 3 (three) times a day. gabapentin 2021- No [id number] 300mg Q.[id number] Take 1 UT (Neurontin) 11-10 [id number] capsule Health 300 MG 00:00: 04:59 3D (300 mg capsule 00 :00 total) by mouth 3 (three) times a day. gabapentin 2021- No [id number] 300mg Q.11292229 Take 1 UT (Neurontin) 11-10 [id number] capsule Health 300 MG 00:00: 04:59 3D (300 mg capsule 00 :00 total) by mouth 3 (three) times a day. methocarbam No [id number] 500mg Q.25D Take 1 UT ol 11-10 tablet Health (Robaxin) 00:00: 04:59 (500 mg 500 MG 00 :00 total) by tablet mouth 4 (four) times a day for 10 days. acetaminoph 2020- No [id number] 1000mg Q6H Take 2 UT en (Tylenol 11-1007 tablets Heal th Extra 00:00: 04:59 (1,000 mg Strength) 00 :00 total) by 500 MG mouth tablet every 6 (six) hours if needed for mild pain for up to 10 days. Tramadol Yes 50 mg, PO, Mem oria 5-24 Q4-6H, PRN l 17:54: Pain, # 20 Big Pool 00 tab, 0 Refill(s) Ibuprofen 0 No PO, PRN, 0 Me moria 5-24 Refill(s) l 17:54: Big Pool 00 Tramadol 0 Yes 50 mg, PO, Mem oria 5-24 Q4-6H, PRN l 17:54: Pain, # 20 Big Pool 00 tab, 0 Refill(s) Ibuprofen 0 No PO, PRN, 0 Me moria 5-24 Refill(s) l 17:54: Big Pool 00 No known 2020-0 No No known UT medications 5-19 medication He alth 14:57: s 20 No known 0 No No known UT medications 5-19 medication He alth 14:57: s 20 traMADol No [id number] 50mg Q6H Take 1 UT (Ultram) 50 - 05-19 tablet (50 H ealth MG tablet 00:00: 00:00 mg total) 00 :00 by mouth every 6 (six) hours. Alternate with Tylenol Gabapentin Gabapentin Yes CANDIS 1 Q0.3333D TAKE 1 UT 300 MG Oral 300 MG Oral 5 TREJO CAPSULE 3 Physici Capsule Capsule 00:00: P.A. TIMES ans 00 DAILY Ibuprofen Ibuprofen Yes CANDIS 1 Q8H TAKE 1 UT 600 MG Oral 600 MG Oral 10-21 TREJO TABLET Physici Tablet Tablet 00:00: P.A. EVERY 8 ans 00 HOURS PRN Pain Docusate Docusate 2020-0 Yes CANDIS 1 Q0.5D TAKE 1 UT Sodium 100 Sodium 100 - TREJO CAPSULE Physici MG Oral MG Oral 00:00: P.A. TWICE ans Capsule Capsule 00 DAILY traMADol traMADol 0 Yes CANDIS 1 Q6H TAKE 1 UT HCl - 50 MG HCl - 50 MG - TREJO TABLET Physici Oral Tablet Oral Tablet 00:00: P.A. EVERY 6 ans 00 HOURS PRN pain Cephalexin Cephalexin Yes CANDIS 1 Q0.3333D TAKE 1 UT 500 MG Oral 500 MG Oral 505 TREJO TABLET 3 Physici Tablet Tablet 00:00: P.A. TIMES ans 00 DAILY Methocarbam Methocarbam Yes AMARILIS 1 Q8H TAKE 1 UT ol 500 MG ol 500 MG 5-05 TREJO TABLET Physici Oral Tablet Oral Tablet 00:00: P.A. EVERY 8 ans 00 HOURS ibuprofen Yes 600 mg = 1 Me moria 600 mg oral 4-30 tab, PO, l tablet 19:21: TID, X 7 Big Pool 00 day, # 21 tab, 0 Refill(s), Pharmacy: [facility], 182.88, cm, 10/12/20 22:34:00 CDT, Height, 92.864, kg, 10/12/20 22:34:00 CDT, Weight Lidocaine Yes 1 patch, Dangelo kati 0.04 MG/MG 4-30 TOP, Q24H, l Medicated 19:21: X 7 day, # He rmann Patch 00 7 patch, 0 Refill(s), Pharmacy: [facility] 149, 182.88, cm, 10/12/20 22:34:00 CDT, Height, 92.864, kg, 10/12/20 22:34:00 CDT, Weight methocarbam Yes 1,000 mg = Memoria ol 500 mg 4-30 2 tab, PO, l oral tablet 19:21: QID, PRN He rmann 00 Muscle Spasms, X 7 day, # 30 tab, 0 Refill(s), Pharmacy: [facility], 182.88, cm, 10/12/20 22:34:00 CDT, Height, 92.864, kg, 10/12/20 22:34:00 CDT, Weight Oxycodone Yes 5 mg = 1 Dangelo kati Hydrochlori 4-30 tab, PO, l de 5 MG 19:21: Q6H, PRN Carlos n Oral Tablet 00 Pain Score 4-6, X 7 day, # 30 tab, 0 Refill(s), Pharmacy: [facility], 182.88, cm, 10/12/20 22:34:00 CDT, Height, 92.864, kg, 10/12/20 22:34:00 CDT, Weight sennosides, Yes 17.2 mg = M emoria LONG TERM 8.6 MG 4-30 2 tab, PO, l Oral Tablet 19:21: Bedtime, X Armando 00 7 day, # 14 tab, 0 Refill(s), Pharmacy: [facility], 182.88, cm, 10/12/20 22:34:00 CDT, Height, 92.864, kg, 10/12/20 22:34:00 CDT, Weight ibuprofen 2020-0 Yes 600 mg = 1 Me moria 600 mg oral 4-30 tab, PO, l tablet 19:21: TID, X 7 Armando 00 day, # 21 tab, 0 Refill(s), Pharmacy: [facility], 182.88, cm, 10/12/20 22:34:00 CDT, Height, 92.864, kg, 10/12/20 22:34:00 CDT, Weight Lidocaine 2020-0 Yes 1 patch, Dangelo kati 0.04 MG/MG 4-30 TOP, Q24H, l Medicated 19:21: X 7 day, # He rmann Patch 00 7 patch, 0 Refill(s), Pharmacy: [facility] 149, 182.88, cm, 10/12/20 22:34:00 CDT, Height, 92.864, kg, 10/12/20 22:34:00 CDT, Weight methocarbam 2020-0 Yes 1,000 mg = Memoria ol 500 mg 4-30 2 tab, PO, l oral tablet 19:21: QID, PRN He rmann 00 Muscle Spasms, X 7 day, # 30 tab, 0 Refill(s), Pharmacy: [facility] 149, 182.88, cm, 10/12/20 22:34:00 CDT, Height, 92.864, kg, 10/12/20 22:34:00 CDT, Weight Oxycodone 2020-0 Yes 5 mg = 1 Dangelo ktai Hydrochlori 4-30 tab, PO, l de 5 MG 19:21: Q6H, PRN Carlos n Oral Tablet 00 Pain Score 4-6, X 7 day, # 30 tab, 0 Refill(s), Pharmacy: [facility] 149, 182.88, cm, 10/12/20 22:34:00 CDT, Height, 92.864, kg, 10/12/20 22:34:00 CDT, Weight sennosides, 2020- Yes 17.2 mg = M emoria LONG TERM 8.6 MG 4-30 2 tab, PO, l Oral Tablet 19:21: Bedtime, X Armando 7 day, # 14 tab, 0 Refill(s), Pharmacy: [facility] 149, 182.88, cm, 10/12/20 22:34:00 CDT, Height, 92.864, kg, 10/12/20 22:34:00 CDT, Weight gabapentin Yes 300 mg = 1 M emoria 300 MG Oral 4-30 cap, PO, l Capsule 19:20: Q8Hnow, # Iva nn 00 21 cap, 0 Refill(s), Pharmacy: [facility] 149, 182.88, cm, 10/12/20 22:34:00 CDT, Height, 92.864, kg, 10/12/20 22:34:00 CDT, Weight Docusate Yes 100 mg = 1 Mem oria Sodium 100 4-30 cap, PO, l MG Oral 19:20: BID, # 14 Iva nn Capsule 00 cap, 0 Refill(s), Pharmacy: [facility] 149, 182.88, cm, 10/12/20 22:34:00 CDT, Height, 92.864, kg, 10/12/20 22:34:00 CDT, Weight Acetaminoph Yes 1,000 mg = Memoria en 500 MG 4-30 2 tab, PO, l Oral Tablet 19:20: Q6Hnow, X H ermann 7 day, # 56 tab, 0 Refill(s), Pharmacy: [facility] 149, 182.88, cm, 10/12/20 22:34:00 CDT, Height, 92.864, kg, 10/12/20 22:34:00 CDT, Weight gabapentin Yes 300 mg = 1 M emoria 300 MG Oral 4-30 cap, PO, l Capsule 19:20: Q8Hnow, # Iva nn 00 21 cap, 0 Refill(s), Pharmacy: [facility] 149, 182.88, cm, 10/12/20 22:34:00 CDT, Height, 92.864, kg, 10/12/20 22:34:00 CDT, Weight Docusate Yes 100 mg = 1 Mem oria Sodium 100 4-30 cap, PO, l MG Oral 19:20: BID, # 14 Iva nn Capsule 00 cap, 0 Refill(s), Pharmacy: [facility] 149, 182.88, cm, 10/12/20 22:34:00 CDT, Height, 92.864, kg, 10/12/20 22:34:00 CDT, Weight Acetaminoph Yes 1,000 mg = Memoria en 500 MG 4-30 2 tab, PO, l Oral Tablet 19:20: Q6Hnow, X H ermann 00 7 day, # 56 tab, 0 Refill(s), Pharmacy: [facility] 149, 182.88, cm, 10/12/20 22:34:00 CDT, Height, 92.864, kg, 10/12/20 22:34:00 CDT, Weight Ibuprofen No Notes: Memori a 200 MG Oral 4-30 (Same as: l Tablet 14:00: Motrin) [place] 00 "Do Not Crush" Take with food. Ibuprofen No Notes: Memori a 200 MG Oral 4-30 (Same as: l Tablet 14:00: Motrin) [place] 00 "Do Not Crush" Take with food. Oxycodone No Notes: Memori a Hydrochlori 4-30 (Same as: l de 5 MG 12:47: Roxicodone Herm huong Oral Tablet 00 ) Oxycodone No Notes: Memori a Hydrochlori 4-30 (Same as: l de 5 MG 12:47: Roxicodone Herm huong Oral Tablet 00 ) Oxycodone No 5 mg, Memoria Hydrochlori 4-30 Route: PO, l de 5 MG 12:46: Drug form: Herm huong Oral Tablet 00 TAB, Q4H, Dosing Weight 92.864, kg, PRN Pain Score 7-10, Start date: 10/14/20 7:46:00 CDT, Duration: 30 day, Stop date: 11/13/20 7:45:00 CDT Oxycodone No 5 mg, Memoria Hydrochlori 4-30 Route: PO, l de 5 MG 12:46: Drug form: Herm huong Oral Tablet 00 TAB, Q4H, Dosing Weight 92.864, kg, PRN Pain Score 7-10, Start date: 10/14/20 7:46:00 CDT, Duration: 30 day, Stop date: 11/13/20 7:45:00 CDT Oxycodone No Notes: Memori a Hydrochlori 4-30 (Same as: l de 5 MG 07:26: Roxicodone Herm huong Oral Tablet 00 ) Robaxin No Notes: Memoria 4-30 (Same l 07:26: as:Robaxin [place] ) Oxycodone No Notes: Memori a Hydrochlori 4-30 (Same as: l de 5 MG 07:26: Roxicodone Herm huong Oral Tablet 00 ) Robaxin No Notes: Memoria 4-30 (Same l 07:26: as:Robaxin [place] ) sennosides, No Notes: Dangelo kati LONG TERM 4-30 (Same as: l 02:00: Senokot) [place] 00 sennosides, No Notes: Dangelo kati LONG TERM 4-30 (Same as: l 02:00: Senokot) [place] 00 Oxycodone No Notes: Memori a Hydrochlori 4-30 (Same as: l de 5 MG 01:14: Roxicodone Herm huong Oral Tablet ) Oxycodone No Notes: Memori a Hydrochlori 4-30 (Same as: l de 5 MG 01:14: Roxicodone Herm huong Oral Tablet ) Sodium No 1,000 mL, Memori a Chloride 4-29 1,000 l 0.9% 20:43: ml/hr, Armando (Bolus) IV 00 Infuse Over: 1 hr, Route: IV, 1,000, Drug form: INJ, ONCE, Dosing Weight 92.864 kg, Start date: 10/13/20 15:43:00 CDT, Stop date: 10/13/20 15:43:00 CDT, 0 Sodium No 1,000 mL, Memori a Chloride - 1,000 l 0.9% 20:43: ml/hr, [place] (Bolus) IV 00 Infuse Over: 1 hr, Route: IV, 1,000, Drug form: INJ, ONCE, Dosing Weight 92.864 kg, Start date: 10/13/20 15:43:00 CDT, Stop date: 10/13/20 15:43:00 CDT, 0 remove No Notes: Memoria patch - Remove l 20:00: patch 12 [place] 00 hours after applicatio n each day. remove No Notes: Memoria patch 4-29 Remove l 20:00: patch 12 Armando 00 hours after applicatio n each day. Docusate No Notes: Memoria 4-29 (Same as: l 14:00: Colace) Armando 00 (Do Not Crush) POLYETHYLEN No Notes: Dangelo kati E GLYCOL -29 Dissolve l 3350 14:00: in 8 oz of [place] 00 water or juice. (Same as: Miralax) Docusate No Notes: Memoria 4-29 (Same as: l 14:00: Colace) [place] 00 (Do Not Crush) POLYETHYLEN No Notes: Dangelo kati E GLYCOL 4-29 Dissolve l 3350 14:00: in 8 oz of Armando 00 water or juice. (Same as: Miralax) Enoxaparin No Notes: Memor ia - (Same as: l 08:00: Lovenox) [place] 00 Lidocaine No Notes: Memori a 0.04 MG/MG 10-13 Apply only l Medicated 08:00: once for Herm huong Patch 00 up to 12 hours in a 24-hour period (12 hours on and 12 hours off). (Same as: Aspercreme Lidocaine Patch) "Remove old patch before applicatio n of new patch" Acetaminoph No Notes: Max Memoria en -29 acetaminop l 08:00: hen 4000 [place] 00 mg/day (4 gm/day). (Same as: Tylenol Extra Strength) gabapentin No Notes: Memor ia 4- (Same as: l 08:00: Neurontin) Armando 00 Enoxaparin No Notes: Memor ia - (Same as: l 08:00: Lovenox) Armando 00 Lidocaine No Notes: Memori a 0.04 MG/MG 10-13 Apply only l Medicated 08:00: once for Herm huong Patch 00 up to 12 hours in a 24-hour period (12 hours on and 12 hours off). (Same as: Aspercreme Lidocaine Patch) "Remove old patch before applicatio n of new patch" Acetaminoph No Notes: Max Memoria en 10-13 acetaminop l 08:00: hen 4000 [place] 00 mg/day (4 gm/day). (Same as: Tylenol Extra Strength) gabapentin No Notes: Memor ia - (Same as: l 08:00: Neurontin) [place] 00 Tramadol No Notes: Not Mem oria - to exceed l 07:15: 400mg/day. [place] 00 (Same As: Ultram) Tramadol No Notes: Not Mem oria -29 to exceed l 07:15: 400mg/day. [place] 00 (Same As: Ultram) Dextrose No 12.5 gm, Memor ia 50% Syringe 10-13 25 mL, l (D50W) 07:12: Route: Armando IVP, Drug Form: INJ, Dosing Weight 92.864, kg, PRN, PRN Blood Glucose Results, Start date: 10/13/20 2:12:00 CDT, Duration: 30 day, Stop date: 11/12/20 2:11:00 CDT, 0 Glucagon No 1 mg, Memoria 10-13 Route: IM, l 07:12: Drug form: Armando PDR/INJ, PRN, Dosing Weight 92.864, kg, PRN Blood Glucose Results, Start date: 10/13/20 2:12:00 CDT, Duration: 30 day, Stop date: 11/12/20 2:11:00 CDT, 0 Ondansetron No Notes: Dangelo kati 10-13 (Same as: l 07:12: Zofran) MEDICATION WASTE Product Size: 4 mg Product Wasted: ___ mg Melatonin No Notes: Memori a -29 (Same as: l 07:12: Melatonin) Dextrose No 12.5 gm, Memor ia 50% Syringe 10-13 25 mL, l (D50W) 07:12: Route: IVP, Drug Form: INJ, Dosing Weight 92.864, kg, PRN, PRN Blood Glucose Results, Start date: 10/13/20 2:12:00 CDT, Duration: 30 day, Stop date: 11/12/20 2:11:00 CDT, 0 Glucagon No 1 mg, Memoria 10-13 Route: IM, l 07:12: Drug form: [place] 00 PDR/INJ, PRN, Dosing Weight 92.864, kg, PRN Blood Glucose Results, Start date: 10/13/20 2:12:00 CDT, Duration: 30 day, Stop date: 11/12/20 2:11:00 CDT, 0 Ondansetron No Notes: Dangelo kati 10-13 (Same as: l 07:12: Zofran) MEDICATION WASTE Product Size: 4 mg Product Wasted: ___ mg Melatonin No Notes: Memori a -29 (Same as: l 07:12: Melatonin) Ancef No Notes: Memoria 4-29 (Same as l 05:00: Ancef) Ancef No Notes: Memoria 4-29 (Same as l 05:00: Ancef) Ancef No Notes: Memoria 4-29 (Same as l 03:00: Ancef) Ancef No Notes: Memoria 4-29 (Same as l 03:00: Ancef) propofol No Route: IV, Mem oria (ANES) 10-12 Drug form: l 22:51: INJ, ONCE, Stop date: 10/12/20 17:51:00 CDT propofol No Route: IV, Mem oria (ANES) 10-12 Drug form: l 22:51: INJ, ONCE, Armando 00 Stop date: 10/12/20 17:51:00 CDT Hydralazine No Notes: Dangelo kati - (Same as: l 22:49: Apresoline Armando ) Push over 5 minutes Labetalol No 10 mg, 2 Dangelo kati 4-28 mL, Route: l 22:49: IVP, Drug [place] 00 form: INJ, Q5Min, Dosing Weight 86.364, kg, PRN Elevated BP, Start date: 10/12/20 17:49:00 CDT, Duration: 5 doses or times, Stop date: 10/13/20 0:00:00 CDT, 0 Acetaminoph No Notes: Max Memoria en 10-12 acetaminop l 22:49: hen 4000 [place] 00 mg/day (4 gm/day). (Same as: Tylenol Extra Strength) Oxycodone No Notes: Memori a Hydrochlori 10-12 (Same as: l de 5 MG 22:49: Roxicodone Herm huong Oral Tablet ) Morphine No Notes: Memoria 10-12 (Same l 22:49: as:MORPhin [place] e Sulfate) Hydromorpho No Notes: Dangelo kati ne 10-12 Same as l 22:49: Dilaudid [place] 00 Flumazenil No Notes: Memor ia 10-12 (Same as: l 22:49: Romazicon) Big [place] Naloxone No Notes: Memoria - Same as l 22:49: Narcan [place] Ondansetron No Notes: Dangelo kati - (Same as: l 22:49: Zofran) Armando MEDICATION WASTE Product Size: 4 mg Product Wasted: ___ mg Hydralazine No Notes: Dangelo kati -28 (Same as: l 22:49: Apresoline [place] ) Push over 5 minutes Labetalol No 10 mg, 2 Dangelo kati 4-28 mL, Route: l 22:49: IVP, Drug form: INJ, Q5Min, Dosing Weight 86.364, kg, PRN Elevated BP, Start date: 10/12/20 17:49:00 CDT, Duration: 5 doses or times, Stop date: 10/13/20 0:00:00 CDT, 0 Acetaminoph No Notes: Max Memoria en - acetaminop l 22:49: hen 4000 Armando 00 mg/day (4 gm/day). (Same as: Tylenol Extra Strength) Oxycodone No Notes: Memori a Hydrochlori - (Same as: l de 5 MG 22:49: Roxicodone Herm huong Oral Tablet ) Morphine No Notes: Memoria - (Same l 22:49: as:MORPhin Armando 00 e Sulfate) Hydromorpho No Notes: Dangelo kati ne 10-12 Same as l 22:49: Dilaudid Flumazenil No Notes: Memor ia - (Same as: l 22:49: Romazicon) Naloxone No Notes: Memoria - Same as l 22:49: Narcan Ondansetron No Notes: Dangelo kati - (Same as: l 22:49: Zofran) MEDICATION WASTE Product Size: 4 mg Product Wasted: ___ mg fentaNYL No Route: IV, Mem oria (ANES) 10-12 Drug form: l 22:38: INJ, ONCE, Armando Stop date: 10/12/20 17:38:00 CDT ondansetron No Route: IV, Memoria (ANES) 10-12 Drug form: l 22:38: INJ, ONCE, Armando 00 Stop date: 10/12/20 17:38:00 CDT ketAMINE No Route: IV, Mem oria (ANES) 10-12 Drug form: l 22:38: INJ, ONCE, [place] 00 Stop date: 10/12/20 17:38:00 CDT fentaNYL No Route: IV, Mem oria (ANES) 4-28 Drug form: l 22:38: INJ, ONCE, Stop date: 10/12/20 17:38:00 CDT ondansetron No Route: IV, Memoria (ANES) 10-12 Drug form: l 22:38: INJ, ONCE, Stop date: 10/12/20 17:38:00 CDT ketAMINE No Route: IV, Mem oria (ANES) 10-12 Drug form: l 22:38: INJ, ONCE, Stop date: 10/12/20 17:38:00 CDT dexamethaso No Route: IV, Memoria ne (ANES) 10-12 Drug form: l 21:39: INJ, ONCE, Stop date: 10/12/20 16:39:00 CDT dexamethaso No Route: IV, Memoria ne (ANES) 10-12 Drug form: l 21:39: INJ, ONCE, Stop date: 10/12/20 16:39:00 CDT ceFAZolin 0 No Route: IV, Me moria (ANES) 10-12 Drug form: l 21:34: INJ, ONCE, Stop date: 10/12/20 16:34:00 CDT succinylcho No Route: IV, Memoria line (ANES) 10-12 Drug form: l 21:34: INJ, ONCE, Stop date: 10/12/20 16:34:00 CDT ceFAZolin 0 No Route: IV, Me moria (ANES) 10-12 Drug form: l 21:34: INJ, ONCE, Stop date: 10/12/20 16:34:00 CDT succinylcho 0 No Route: IV, Memoria line (ANES) 10-12 Drug form: l 21:34: INJ, ONCE, Stop date: 10/12/20 16:34:00 CDT lidocaine 2020-0 No Route: IV, Me moria (ANES) 10-12 Drug form: l 21:28: INJ, ONCE, Stop date: 10/12/20 16:28:00 CDT propofol 2020-0 No Route: IV, Mem oria (ANES) 10-12 Drug form: l 21:28: INJ, ONCE, [place] Stop date: 10/12/20 16:28:00 CDT fentaNYL 2020-0 No Route: IV, Mem oria (ANES) 10-12 Drug form: l 21:28: INJ, ONCE, Armando Stop date: 10/12/20 16:28:00 CDT lidocaine 2020-0 No Route: IV, Me moria (ANES) 10-12 Drug form: l 21:28: INJ, ONCE, [place] 00 Stop date: 10/12/20 16:28:00 CDT propofol 2020-0 No Route: IV, Mem oria (ANES) 10-12 Drug form: l 21:28: INJ, ONCE, [place] 00 Stop date: 10/12/20 16:28:00 CDT fentaNYL 2020-0 No Route: IV, Mem oria (ANES) 10-12 Drug form: l 21:28: INJ, ONCE, [place] 00 Stop date: 10/12/20 16:28:00 CDT midazolam 2020-0 No Route: IV, Me moria (ANES) 10-12 Drug form: l 21:23: SOLN, Armando 00 ONCE, Stop date: 10/12/20 16:23:00 CDT midazolam 2020-0 No Route: IV, Me moria (ANES) 10-12 Drug form: l 21:23: SOLN, Armando 00 ONCE, Stop date: 10/12/20 16:23:00 CDT Lactated 2020-0 No Route: IV, Mem oria Ringers - Total l Injection 20:45: Volume: Iva nn IV (ANES) 00 1,000, 1000 mL Start date: 10/12/20 15:45:00 CDT, Stop date: 10/12/20 16:45:00 CDT Lactated 2020-0 No Route: IV, Mem oria Ringers - Total l Injection 20:45: Volume: Iva nn IV (ANES) 00 1,000, 1000 mL Start date: 10/12/20 15:45:00 CDT, Stop date: 10/12/20 16:45:00 CDT Gentamicin 2021-0 No Notes: Memor ia 4-28 TIME l 18:23: CRITICAL Armando 00 MEDICATION (Same as Garamycin) For adult patients only: Round to nearest 10 mg per Medical Staff approval Gentamicin No Notes: Memor ia 4-28 TIME l 18:23: CRITICAL [place] 00 MEDICATION (Same as Garamycin) For adult patients only: Round to nearest 10 mg per Medical Staff approval Ketamine No 100 mg, 10 Mem oria 4-28 mL, Route: l 18:22: IV, Drug Armando 00 form: INJ, ONCE, Dosing Weight 86.364, kg, Start date: 10/12/20 13:22:00 CDT, Stop date: 10/12/20 13:22:00 CDT, 0 Propofol No Notes: If Dangelo kati 4-28 Diprivan - l 18:22: change [place] 00 bottle & tubing every 12 hr Per state nursing law propofol can only be given by a nurse if patient is intubated or being intubated (unless the nurse is a INSERT MOLDING OPERATOR). Same as: Diprivan Ancef No Notes: Memoria 4-28 (Same As: l 18:22: Ancef) Armando 00 Inject direct IV slowly over 5 minutes. Cefazolin 1gm in sterile water 10mL Ketamine No 100 mg, 10 Mem oria 4-28 mL, Route: l 18:22: IV, Drug Armando 00 form: INJ, ONCE, Dosing Weight 86.364, kg, Start date: 10/12/20 13:22:00 CDT, Stop date: 10/12/20 13:22:00 CDT, 0 Propofol No Notes: If Dangelo kati 4-28 Diprivan - l 18:22: change [place] 00 bottle & tubing every 12 hr Per state nursing law propofol can only be given by a nurse if patient is intubated or being intubated (unless the nurse is a INSERT MOLDING OPERATOR). Same as: Diprivan Ancef No Notes: Memoria 4-28 (Same As: l 18:22: Ancef) [place] 00 Inject direct IV slowly over 5 minutes. Cefazolin 1gm in sterile water 10mL Ketamine No 50 mg, 5 Memor ia 4-28 mL, Route: l 17:26: IV, Drug form: INJ, ONCE, Dosing Weight 86.364, kg, Start date: 10/12/20 12:26:00 CDT, Stop date: 10/12/20 12:26:00 CDT, 0 Ketamine 2020-0 No 50 mg, 5 Memor ia 4-28 mL, Route: l 17:26: IV, Drug form: INJ, ONCE, Dosing Weight 86.364, kg, Start date: 10/12/20 12:26:00 CDT, Stop date: 10/12/20 12:26:00 CDT, 0 No known No [facility] No known No [facility] Immunizations Ordered Immunization Filled Immunization Date Status Commen ts Source Name Name Influenza Virus 2021-03-17 Completed Rashmi No ybold Vaccine, age 6 00:00:00 months and up Influenza Virus 2021-03-17 Completed Rashmi No ybold Vaccine, age 6 00:00:00 months and up diphtheria/pertussis 2020-10-12 Completed Dangelo rial , acel/tetanus adult 18:55:00 Herm huong diphtheria/pertussis 2020-10-12 Completed Dangelo rial , acel/tetanus adult 18:55:00 Herm huong Tdap- (Boostrix, 2020-10-12 Completed Rashmi crouchld Adacel) 00:00:00 Tdap- (Boostrix, 2020-10-12 Completed Rashmi nobleboclarence Adacel) 00:00:00 Vital Signs Vital Name Observation Time Observation Value Comments Source Body height 2021-01-04 18:20:00 [facility]2 [facility] weight 2021-01-04 18:20:00 81.647 [facility] BMI 2021-01-04 18:20:00 28.19 kg/m2 [facility] Body height 2020-11-10 12:23:55 172.7 cm [facility] Body weight 2020-11-10 12:23:55 90.5 kg [facility] BMI 2020-11-10 12:23:55 30.34 kg/m2 [facility] Body height 2020-11-10 12:23:55 [facility].7 [facility] Body weight 2020-11-10 12:23:55 90.5 kg [facility] BMI 2020-11-10 12:23:55 30.34 kg/m2 [facility] Body height 2020-11-23 18:32:00 167.6 cm [facility] Body weight 2020-11-23 18:32:00 81.647 [facility] BMI 2020-11-23 18:32:00 29.05 kg/m2 [facility] Systolic blood 2021-03-17 15:14:00 118 mm[Hg] Rashmi Seybold pressure Diastolic blood 2021-03-17 15:14:00 74 mm[Hg] Kelse y Seybold pressure Heart rate 2021-03-17 15:14:00 54 /min Rashmi S eybold Body temperature 2021-03-17 15:14:00 36.22 Karie Yarelis ey Seybold Respiratory rate 2021-03-17 15:14:00 16 /min Yarelis ey Seybold Body height 2021-03-17 15:14:00 175.3 cm Rashmi S eybold Body weight 2021-03-17 15:14:00 92.534 kg Rashmi S eybold BMI 2021-03-17 15:14:00 30.13 kg/m2 Rashmi S eybold Oxygen saturation in 2021-03-17 15:14:00 97 /min Rashmi Seybold Arterial blood by Pulse oximetry Systolic blood 2021-03-17 13:20:00 118 mm[Hg] Rashmi Seybold pressure Diastolic blood 2021-03-17 13:20:00 74 mm[Hg] Kelse y Seybold pressure Heart rate 2021-03-17 13:20:00 54 /min Rashmi S eybold Body temperature 2021-03-17 13:20:00 36.22 Karie Yarelis ey Seybold Body height 2021-03-17 13:20:00 175.3 cm Rashmi S eybold Body weight 2021-03-17 13:20:00 92.534 kg Rashmi S eybold BMI 2021-03-17 13:20:00 30.13 kg/m2 Rashmi S eybold Body height 2021-01-04 18:20:00 [facility].2 [facility] weight 2021-01-04 18:20:00 81.647 kg [facility] BMI 2021-01-04 18:20:00 28.19 kg/m2 [facility] Body height 2020-11-23 18:32:00 167.6 cm [facility] Body weight 2020-11-23 18:32:00 81.647 kg [facility] BMI 2020-11-23 18:32:00 29.05 kg/m2 [facility] Body height 2020-11-10 12:23:55 172.7 cm [facility] Body weight 2020-11-10 12:23:55 90.5 kg [facility] BMI 2020-11-10 12:23:55 30.34 kg/m2 [facility] Body height 2020-11-10 12:23:55 172.7 cm [facility] Body weight 2020-11-10 12:23:55 90.5 kg [facility] BMI 2020-11-10 12:23:55 30.34 kg/m2 [facility] Body height 2020-11-10 12:23:55 172.7 cm [facility] Body weight 2020-11-10 12:23:55 90.5 kg [facility] BMI 2020-11-10 12:23:55 30.34 kg/m2 [facility] Body height 2020-11-10 12:23:55 172.7 cm [facility] Body weight 2020-11-10 12:23:55 90.5 kg [facility] BMI 2020-11-10 12:23:55 30.34 kg/m2 [facility] Respitory Rate 2020-11-10 15:23:00 Memori al [place] Systolic (mm Hg) 2020-11-10 15:23:00 Dangelo rial Armando Diastolic (mm Hg) 2020-11-10 15:23:00 Mem orial Armando Respitory Rate 2020-11-10 15:00:00 Memori al [place] Systolic (mm Hg) 2020-11-10 15:00:00 Dangelo rial Armando Diastolic (mm Hg) 2020-11-10 15:00:00 Mem orial Armando Respitory Rate 2020-11-10 14:45:00 Memori al [place] Systolic (mm Hg) 2020-11-10 14:45:00 Dangelo rial Armando Diastolic (mm Hg) 2020-11-10 14:45:00 Mem orial Armando Height 2020-11-10 12:23:00 172.72 cm [facility] [place] Weight 2020-11-10 12:23:00 [facility] [place] BMI Calculated 2020-11-10 12:23:00 Memori al [place] Heart Rate 2020-11-10 11:42:00 [facility] Armando Height 2020-11-07 17:49:00 172.72 cm [facility] Armando Weight 2020-11-07 17:49:00 [facility] Armando BMI Calculated 2020-11-07 17:49:00 Memori al [place] Temperature Oral (F) 2020-10-14 17:58:00 97.5 F [facility] Armando Heart Rate 2020-10-14 17:58:00 [facility] Armando Respitory Rate 2020-10-14 17:58:00 Memori al [place] Systolic (mm Hg) 2020-10-14 17:58:00 Dangelo rial [place] Diastolic (mm Hg) 2020-10-14 17:58:00 Mem orial Armando Temperature Oral (F) 2020-10-14 13:31:00 97.8 F [facility] Armando Heart Rate 2020-10-14 13:31:00 [facility] [place] Respitory Rate 2020-10-14 13:31:00 Memori al [place] Systolic (mm Hg) 2020-10-14 13:31:00 Dangelo rial [place] Diastolic (mm Hg) 2020-10-14 13:31:00 Mem orial Armando Temperature Oral (F) 2020-10-14 07:58:00 97.9 F [facility] [place] Heart Rate 2020-10-14 07:58:00 [facility] Armando Respitory Rate 2020-10-14 07:58:00 Memori al Armando Systolic (mm Hg) 2020-10-14 07:58:00 Dangelo rial [place] Diastolic (mm Hg) 2020-10-14 07:58:00 Mem orial Armando Height 2020-10-13 03:34:00 182.88 cm [facility] [place] Weight 2020-10-13 03:34:00 [facility] BMI Calculated 2020-10-13 03:34:00 Adair Steiner Height 2020-10-12 17:11:00 182.88 cm [facility] BMI Calculated 2020-10-12 17:11:00 Adair Steiner Weight 2020-10-12 17:11:00 [facility] Procedures Procedure Date / Time Performed Performing Clinician Sourc e HGB A1C WITH MBG 2021-03-17 14:10:00 Collette Chavez ESTIMATION LIPID PANEL 2021-03-17 14:10:00 Collette Chavez T4F 2021-03-17 14:10:00 Collette Chavez CMP14+CBC/D/PLT+TSH 2021-03-17 14:10:00 Collette Chavez elsey Jaimee W/RFLX Elbow joint operations [facility] Encounters Start End Encounter Admission Attending Care Care Encounter Source Date/Time Date/Time Type Type Clinicians Facility Department ID 2021-03-17 Outpatient PEREZ, [facility] [id number] [place] 02:[place]:32 [facility] 2021-03-17 Outpatient PEREZ, [facility] [id number] [place] 02:45:21 [facility] 2021-02-28 Outpatient [facility] [id number] [place] 10:05:56 [facility] 2021-02-19 Outpatient [facility] [id number] [place] 01:06:50 [facility] 2021-02-15 Outpatient PEREZ, [facility] [id number] [place] 11:16:51 [facility] 2021-01-05 Outpatient [facility] [id number] [place] 15:14:08 [facility] 2021-01-04 Outpatient PEREZ, [facility] [id number] [place] 12:59:48 [facility] 2020-12-29 Outpatient [facility] [id number] [place] 15:55:21 [facility] 2020-12-11 Outpatient PEREZ, [facility] [id number] [place] 01:02:14 [facility] 2020-11-28 Outpatient [facility] [id number] [place] 14:56:29 [facility] 2020-11-23 Outpatient PEREZ, [facility] [id number] [place] 14:09:05 [facility] 2020-11-23 Outpatient [facility] [id number] [place] 13:50:57 [facility] 2020-11-12 Outpatient PEREZ, [facility] [id number] [place] 01:02:02 [facility] 2020-11-02 Outpatient NEIL, [facility] [id number] [place] 14:19:39 [facility] 2020-10-28 Outpatient [facility] [id number] [place] 14:40:46 Health 2020-10-22 Outpatient PEREZ, [facility] [id number] [place] 04:25:28 [facility] 2021-04-21 2021-04-21 Outpatient RASHMI DUDLEY [id number] Rashmi 08:00:00 08:00:00 SIMRAN Seybol d 2021-04-17 2021-04-17 Outpatient RASHMI DUDLEY [id number] Rashmi 08:00:00 08:00:00 SIMRAN Seybol d 2021-03-29 2021-03-29 Outpatient RASHMI CHAVEZ [id number] Rashmi 00:00:00 00:00:00 COLLETTE Sedreaol d 2021-03-21 2021-03-21 Outpatient RASHMI CHAVEZ [id number] Rashmi 00:00:00 00:00:00 COLLETTE Seybol d 2021-03-17 2021-03-17 Office AncaAmish [id number] Rashmi 09:18:38 09:48:38 Visit Simran Payan [id number] Se ybold [id number] 2021-03-17 2021-03-17 Outpatient LAB90 RASHMI CASTRO [id number] Rashmi 09:15:00 09:15:00 Seybol d 2021-03-17 2021-03-17 Office Amish Chavez [id number] Rashmi 08:30:00 09:00:00 Visit Collette Payan [id number] Se ybold Somogyi [id number] 2021-02-172021-02-17 Outpatient RASHMI CHAVZE [id number] Rashmi 11:00:00 11:00:00 COLLETTE Queen pauline 2021-02-15 2021-02-15 Office CARINA Haider [id number] [place] 10:24:38 11:16:50 Visit Reeju TRAUMA [id number] [facility] [id number] 2021-02-15 2021-02-15 Office CARINA Haider [id number] 10:24:38 11:16:50 Visit Reeju TRAUMA [id number] CLINIC [id number] 2021-01-04 2021-01-04 Office CARINA Trejo [id number] [place] 12:59:41 13:40:29 Visit Joannah TRAUMA [id number] [facility] [id number] 2020-11-23 2020-11-23 Office CARINA Trejo [id number] [place] 12:56:21 14:07:34 Visit Joannah TRAUMA 350.1.13.58 [facility] alth CLINIC 9.2.7.2.686 [id number] 1 2020-11-10 2020-11-11 Day nullFlavo [facility] [id number] Memoria 10:51:00 04:59:00 Surgery r [place] 00 [facility] 2020-11-10 2020-11-11 Day nullFlavo [facility] [id number] Memoria 10:51:00 04:59:00 Surgery r Big Pool 00 [facility] 2020-11-10 2020-11-10 Outpatient PEREZ [facility] [address] [facility] 05:51:00 23:59:00 GUALBERTO 2020-11-10 2020-11-10 Outpatient Perez [facility] [id number] 05:51:00 23:59:00 Gualberto Rice 2020-11-10 2020-11-10 Outpatient Perez [facility] [id number] 05:51:00 23:59:00 Gualberto Rice 00 2020-11-10 2020-11-10 EXT [facility] OP Perez, EXT MSRDP 1.2.840.114 1 [id number] [place] 08:45:12 09:45:12 Gualberto LOCATION 350.1.13.58 H ealth 9.2.7.2.686 [id number] 1 2020-11-10 2020-11-10 EXT [facility] OP Perez, EXT MSRDP 1.2.840.114 1 [id number] [place] 08:45:12 09:45:12 Gualberto LOCATION 350.1.13.58 H ealth 9.2.7.2.686 [id number] 1 2020-11-02 2020-11-02 Office CARINA Todd 1.2.840.114 [id number] [place] 13:50:28 14:18:35 Visit Gualberto TRAUMA 350.1.13.58 [facility] 9.2.7.2.686 [id number] 1 2020-11-02 2020-11-02 Orders Neil UTP 1.2.662.159 [id number] [place] 00:00:00 00:00:00 Only Joannah TRAUMA 350.1.13.58 [facility] CLINIC 9.2.7.2.686 [id number] 1 2020-10-19 2020-10-19 Appointmen CARINA TODD UTP [id number] [place] 13:30:00 13:30:00 t; GUALBERTO TODD, [facility] Mindy Saldivar M.D. 2020-10-12 2020-10-14 Inpatient nullFlavo [facility] [id number] Memoria 17:11:00 21:35:[address] 2020-10-12 2020-10-14 Inpatient nullFlavo [facility] [id number] Memoria 17:11:00 21:35:[address] 2020-10-12 2020-10-14 Inpatient Gary DUARTE [facility] MED [address] [facility] 15:40:00 16:35:00 SHIFA 2020-10-12 2020-10-14 Outpatient Fermin [facility] [id number] 12:11:00 16:35:00 Shif Carlos 2020-10-12 2020-10-14 Outpatient Fermin [facility] [id number] 12:11:00 16:35:00 Shif Carlos 2020-10-12 2020-10-12 [facility] 12:00:00 23:59:00 VIECNTA 2020-10-12 2020-10-12 EXT [facility] OP Gurjit, EXT MSRDP 1.2.840.114 1 [id number] [place] 00:00:00 00:00:00 Vicenta Salesan LOCATION 350.1.13.58 Health 9.2.7.2.686 [id number] 0 2020-10-12 2020-10-12 EXT [facility] OP Gurjit, EXT MSRDP 1.2.840.114 1 [id number] [place] 00:00:00 00:00:00 Vicenta Patterson [facility] 350.1.13.58 Health 9.2.7.2.686 [id number] 0 Results Test Description Test Time Test Comments Results Result Comments Source CMP14+CBC/D/PLT+TSH W/RFLX 2021-03-18 13:36:00 Test Item Value Reference Range Interpretation Comme nts GLUCOSE, SERUM (test code = 94 mg/dL 65-99 2345-7) BUN (test code = 3094-0) 15 mg/dL 6-20 CREATININE, SERUM (test 1.18 mg/dL 0.76-1.27 code = 2160-0) EGFR IF NONAFRICN AM (test 80 mL/min/1.73 >59 code = 67619-5) EGFR IF AFRICN AM (test 93 mL/min/1.73 >59 [facility] currently code = 13375-8) reports eGFR in compliance with the current ?recommendation s of the [employer]. Lab raul will ?update re porting as new guidelin es are published from the NKF-ASN ?Task f orce. BUN/CREATININE RATIO (test 03-06 code = 3097-3) SODIUM, SERUM (test code = 140 mmol/L 200-365 4665-2) POTASSIUM, SERUM (test code 5.7 mmol/L 3.5-5.2 H = 2823-3) CHLORIDE, SERUM (test code 101 mmol/L 96-106 = 5-0) CARBON DIOXIDE, TOTAL (test 29 mmol/L 20-29 code = 2027-9) CALCIUM, SERUM (test code = 10.1 mg/dL 8.7-10.2 08057-9) PROTEIN, TOTAL, SERUM (test 7.2 g/dL 6.0-8.5 code = 2885-2) ALBUMIN, SERUM (test code = 4.9 g/dL 4.0-5.0 175-7) GLOBULIN, TOTAL (test code 2.3 g/dL 1.5-4.5 = 86806-4) A/G RATIO (test code = 1.2-2.2 1758-0) BILIRUBIN, TOTAL (test code 0.4 mg/dL 0.0-1.2 = 1974-2) ALKALINE PHOSPHATASE, SERUM See_Comment Please note (test code = 6768-6) referen ce interval change [Autom ated message] The sy stem which generated this result transmit logan reference range : 44 - 121 IU/L. The r eference range was not u sed to interpret this result as normal/abnor mal. AST (SGOT) (test code = See_Comment [Au tomated message] 1920-01) The system [employer] generated this result transmitted ref erence range: 0 - 40 I U/L. The reference range was not used to interpr et this result as normal/abnormal . ALT (SGPT) (test code = See_Comment [Au tomated message] 1741-6) The system [employer] generated this result transmitted ref erence range: 0 - 44 I U/L. The reference range was not used to interpr et this result as normal/abnormal . TSH (test code = 16123-9) See_Comment H [ Automated message] The system [employer] generated this result transmitted ref erence range: 0.450 - 4.500 uIU/mL. The ref erence range was not u sed to interpret this result as normal/abnor mal. WHITE BLOOD CELL (WBC) See_Comment [Aut omated message] COUNT (test code = 6690-2) T he system which generated this result transmitted ref erence range: 3.4 - 10 .8 x10E3/uL. The r eference range was not u sed to interpret this result as normal/abnor mal. RED BLOOD CELL (RBC) COUNT See_Comment [Automated message] (test code = 789-8) The syst em which generated this result transmitted ref erence range: 4.14 - 5 .80 x10E6/uL. The r eference range was not u sed to interpret this result as normal/abnor mal. HEMOGLOBIN (test code = 16.6 g/dL 13.0-17.7 718-7) HEMATOCRIT (test code = 49.7 % 37.5-51.0 4544-3) MCV (test code = 787-2) 88 fL 79-97 MCH (test code = 785-6) 29.4 pg 26.6-33.0 MCHC (test code = 786-4) 33.4 g/dL 31.5-35.7 RDW (test code = 788-0) 13.8 % 11.6-15.4 PLATELETS (test code = See_Comment [Aut omated message] 777-3) The system ic h generated this result transmitted ref erence range: 150 - 45 0 x10E3/uL. The r eference range was not u sed to interpret this result as normal/abnor mal. NEUTROPHILS (test code = 58 % Not Estab. 770-8) LYMPHS (test code = 736-9) 29 % Not Estab. MONOCYTES (test code = 8 % Not Estab. 5905-5) EOS (test code = 713-8) 4 % Not Estab. BASOS (test code = 706-2) 1 % Not Estab. NEUTROPHILS (ABSOLUTE) See_Comment [Aut omated message] (test code = 751-8) The syst em which generated this result transmitted ref erence range: 1.4 - 7. 0 x10E3/uL. The r eference range was not u sed to interpret this result as normal/abnor mal. LYMPHS (ABSOLUTE) (test See_Comment [Au tomated message] code = 731-0) The system i ch generated this result transmitted ref erence range: 0.7 - 3. 1 x10E3/uL. The r eference range was not u sed to interpret this result as normal/abnor mal. MONOCYTES(ABSOLUTE) (test See_Comment [ Automated message] code = 742-7) The system [facility] generated this result transmitted ref erence range: 0.1 - 0. 9 x10E3/uL. The r eference range was not u sed to interpret this result as normal/abnor mal. EOS (ABSOLUTE) (test code = See_Comment [Automated message] 711-2) The system [employer] generated this result transmitted ref erence range: 0.0 - 0. 4 x10E3/uL. The r eference range was not u sed to interpret this result as normal/abnor mal. BASO (ABSOLUTE) (test code See_Comment [Automated message] = 704-7) The system [employer] generated this result transmitted ref erence range: 0.0 - 0. 2 x10E3/uL. The r eference range was not u sed to interpret this result as normal/abnor mal. IMMATURE GRANULOCYTES (test 0 % Not Estab. code = 16754-6) IMMATURE GRANS (ABS) (test See_Comment [Automated message] code = 27672-3) The system [facility] generated this result transmitted ref erence range: 0.0 - 0. 1 x10E3/uL. The r eference range was not u sed to interpret this result as normal/abnor mal. RANJAN (test code = RANJAN) [facility] results reported in [place] Time. [facility] Clinical Information:SRC:Blood , venous*Venipunc ture ? [facility] Source of Specimen:Blood, venous*Venipunc Lab Interpretation (test Abnormal code = 53755-7) Rashmi HermosilloNkllrpjJ3W6050-32-97 13:36:00 Test Item Value Reference Range Interpretation Comments T4, FREE (DIRECT) 1.31 ng/dL 0.82-1.77 (test code = 3024-7) RANJAN (test code = RANJAN) [facility] results reported in [place] Time. [facility] Clinical Information:SRC:Blood, venous*Venipunc ture ? [facility] Source of Specimen:Blood, venous*Venipunc Rashmi HermosilloHGB A1C WITH MBG OGCDWUSDQH4453-61-47 13:15:00 Test Item Value Reference Range Interpretation Comments HEMOGLOBIN A1C (test 5.1 % 4.8-5.6 ? code = 4548-4) ? . ? Prediabetes: 5. 7 - 6.4 ? Diabetes: >6.4 ? Glycemic control for adults with diabetes: <7.0 ESTIM. AVG GLU (EAG) 100 mg/dL (test code = 66956-9) RANJAN (test code = [facility] results RANJAN) reported in [place] Time. [facility] Clinical Information:SRC:B lood, venous*Venipunc ture ? [facility] Source of Specimen:Blood, venous*Venipunc Rashmi BaoldLIPID [id number] 11:11:00 Test Item Value Reference Range Interpretation Comments CHOLESTEROL, TOTAL (test 187 mg/dL 100-199 code = 2093-3) TRIGLYCERIDES (test code = 95 mg/dL 0-149 2571-8) HDL CHOLESTEROL (test code 62 mg/dL >39 = 2085-9) VLDL CHOLESTEROL NEETU (test 17 mg/dL 5-40 code = 54054-2) LDL CHOL CALC (NIH) (test 108 mg/dL 0-99 H code = 54007-5) RANJAN (test code = RANJAN) [facility] results reported in [place] Time. [facility] Clinical Information:SRC:Blo od, venous*Venipunc ture ? [facility] Source of Specimen:Blood, venous*Venipunc Lab Interpretation (test Abnormal code = 83313-6) Rashmi HermosilloEspasgrJQTFAJFHJG2461-53-27 17:28:00 Test Item Value Reference Range Interpretation Comments Coronavirus (COVID-19) Not Detected NED (test code = *NA*(11/08/20 12:28 Coronavirus (COVID-19) PM) NED) [facility]NIY[facility]NRDJJ7292-67-06 17:28:00Not Detected *NA*(11/08/20 12:28 PM) [facility] CenterBxvaczzFSCMFTTLBK1040-69-66 08:02:0012.5[facility] 2020-10-14 08:02:0035.7[facility] AsrapdmKXUYJXUAQY9345-91-38 08:02:0089.0[facility] GxxrvyoPZXUZKBZIJ9588-94-80 08:02:00 Test Item Value Reference Range Interpretation Comments MCH (test code = MCH) 31.1 pg 27.0-31.0 [facility] SavvatrWFWYCNPMBX6194-23-08 08:02:0034.9[facility]annHEMATOLOGY 2020-10-14 08:02:0013.6[facility] NdixtdaBACEMDJJJN3060-15-22 08:02:90738Mpyjbktw JollgfnNDJFGNCJPH1729-02-86 08:02:009.7[facility] DvnhrziCKADANGZXE4010-40-59 08:02:0070.0[facility] LduegafUPAYPXEPDH5157-68-24 08:02:0020.7[facility] Armando FXORBUTYKW3629-29-99 08:02:008.7[facility] XvkaggsQEGADWNUVW5255-12-88 08:02:000.4 [facility] YfzzoomRKJRAGYDBW7746-03-33 08:02:000.2[facility]ann[facility]MATOLOGY 2020-10-14 08:02:007.0[facility] AysfafzTXZTVYNJXH8393-40-13 08:02:002.1[facility] YqasqwvOBDPDMXWNR5810-01-20 08:02:000.9[facility] HermannCHEM CKYNW0547-85-01 08:02:0095[facility] HermannCHEM DGNYU2408-86-23 08:02:0012[facility]annCHEM RYAZS0318-65-80 08:02:000.96[facility] HermannCHEM PCXXU6508-91-38 08:02:96653 [facility]annCHE[facility] KZGWQ9585-00-78 08:02:003.9[facility]annCHEM PANEL 2020-10-14 08:02:41336Bfjkmhqz HermannCHEM LHTWL5198-86-74 08:02:0031[facility] HermannCHEM DATJT7121-98-20 08:02:00 Test Item Value Reference Range Interpretation Comments AGAP (test code = AGAP) 3.9 10.0-20.0 [facility] KVEWI1711-60-64 08:02:00 Test Item Value Reference Range Interpretation Comments Calcium Lvl (test code = Calcium Lvl) 8.4 8.5-10.5 [facility]2021-04-30 08:02:00 Test Item Value Reference Range Interpretation Comments eGFR (test code = eGFR) 103 [facility]PuepjzgJNOULSWMJS5862-85-56 08:02:00 Test Item Value Reference Range Interpretation Comments WBC (test code = WBC) 10.0 3.7-10.4 [facility] HospitalYdygwsnAHLLDQNLWX6722-97-15 08:02:00 Test Item Value Reference Range Interpretation Comments RBC (test code = RBC) 4.01 4.70-6.10 [facility] HospitalJddrsylLPISPQFZXM8791-07-37 08:02:00 Test Item Value Reference Range Interpretation Comments Hgb (test code = Hgb) 12.5 14.0-18.0 [facility] HospitalWjcakozPZLXDIGDPA5977-88-68 08:02:00 Test Item Value Reference Range Interpretation Comments Hct (test code = Hct) 35.7 42.0-54.0 [facility] HospitalKuhckxsQRQYAXADGS3378-99-72 08:02:00 Test Item Value Reference Range Interpretation Comments MCV (test code = MCV) 89.0 80.0-94.0 [facility] HospitalQlhvgezDIZXEFOXZT1598-85-89 08:02:00 Test Item Value Reference Range Interpretation Comments MCH (test code = MCH) 31.1 pg 27.0-31.0 [facility] HospitalApdhzypLBVUQHZKSZ0496-72-31 08:02:00 Test Item Value Reference Range Interpretation Comments MCHC (test code = MCHC) 34.9 32.0-36.0 [facility] HospitalIuzsrflUVKWRGICND7191-99-49 08:02:00 Test Item Value Reference Range Interpretation Comments RDW (test code = RDW) 13.6 11.5-14.5 [facility] HospitalSwcbuujBOVTLJGJLP5949-30-39 08:02:00 Test Item Value Reference Range Interpretation Comments Platelet (test code = Platelet) 135 133-450 [facility] HospitalUettgwcVMCSGCMGXZ1521-98-83 08:02:00 Test Item Value Reference Range Interpretation Comments MPV (test code = MPV) 9.7 7.4-10.4 [place] [address]-04-30 08:02:00 Test Item Value Reference Range Interpretation Comments Segs (test code = Segs) 70.0 45.0-75.0 [place] 135121-04-30 08:02:00 Test Item Value Reference Range Interpretation Comments Lymphocytes (test code = Lymphocytes) 20.7 20.0-40.0 [place] 135121-04-30 08:02:00 Test Item Value Reference Range Interpretation Comments Monocytes (test code = Monocytes) 8.7 2.0-12.0 [place] 135121-04-30 08:02:00 Test Item Value Reference Range Interpretation Comments Eosinophils (test code = 0.4 See_Comment [A utomated message] The Eosinophils) system which ge nerated this result tra nsmitted reference range : <=4.0. The reference r buddy was not used to int erpret this result as normal/abnormal . [place] 135121-04-30 08:02:00 Test Item Value Reference Range Interpretation Comments Basophils (test code = 0.2 See_Comment [Aut omated message] The Basophils) system which ge nerated this result tra nsmitted reference range : <=1.0. The reference r buddy was not used to int erpret this result as normal/abnormal . [place] 135121-04-30 08:02:00 Test Item Value Reference Range Interpretation Comments Neutrophils # (test code = Neutrophils 7.0 1.5-8.1 #) [place] 135121-04-30 08:02:00 Test Item Value Reference Range Interpretation Comments Lymphocytes # (test code = Lymphocytes 2.1 1.0-5.5 #) [place] 135121-04-30 08:02:00 Test Item Value Reference Range Interpretation Comments Monocytes # (test code 0.9 See_Comment [Aut omated message] The = Monocytes #) system which generated this result tra nsmitted reference range : <=0.8. The reference r buddy was not used to int erpret this result as normal/abnormal . [facility] UUCZM7779-53-95 08:02:00 Test Item Value Reference Range Interpretation Comments Glucose Lvl (test code = Glucose Lvl) 95 70-99 [facility] WRXHS4449-31-85 08:02:00 Test Item Value Reference Range Interpretation Comments BUN (test code = BUN) 12 7-22 [facility] LGAOM8792-25-49 08:02:00 Test Item Value Reference Range Interpretation Comments Creatinine Lvl (test code = Creatinine 0.96 0.50-1.40 Lvl) [facility] XLNZQ1125-61-98 08:02:00 Test Item Value Reference Range Interpretation Comments Sodium Lvl (test code = Sodium Lvl) 139 135-145 [facility] NRQIG3056-04-22 08:02:00 Test Item Value Reference Range Interpretation Comments Potassium Lvl (test code = Potassium 3.9 3.5-5.1 Lvl) [facility] RLHBF3806-76-69 08:02:00 Test Item Value Reference Range Interpretation Comments Chloride Lvl (test code = Chloride Lvl) 108 95-109 [facility] PDXIX6232-97-47 08:02:00 Test Item Value Reference Range Interpretation Comments CO2 (test code = CO2) 31 24-32 [facility] NEKKQ2554-86-98 08:02:003.9[facility]annCHEM PANEL 2020-10-14 08:02:008.4[facility] HermannCHEM ACWSA7777-84-71 08:02:40644Ewjjixyv BzuhxzhJYLIFFQJPS0093-24-04 08:02:0010.0[facility] KwhasvnEJPXTXDETJ6214-74-86 08:02:004.01[facility] HermannCHEM IGWTA5882-67-55 08:47:76932Lltkbeqz HermannCHEM GAQMU4691-61-18 08:47:0011[facility]annCHEM SLTKU5179-24-68 08:47:001.43 [facility]annCHE[facility] MDINE9501-50-38 08:47:38476Xxgjdasx HermannCHEM PANEL 2020-10-13 08:47:004.4[facility] HermannCHEM ESDTW6298-78-24 08:47:71228Czwdxeli HermannCHEM IANWQ0148-45-42 08:47:0027[facility]annCHEM QGXJF5717-77-31 08:47:0010.4[facility] HermannCHEM CSVOG3477-87-17 08:47:009.0[facility] HermannCHEM AECWS3507-53-08 08:47:0063[facility] CeojvinCPESIMMPGP4954-46-21 08:47:0014.7 [facility] JotbgosGKAWZKDUJF9679-46-77 08:47:004.69[facility]annHEMATOLOGY 2020-10-13 08:47:0014.3[facility] BqxdcrgPFSAKVWPYC8762-38-88 08:47:0042.1[facility] FjzqlhpKHXNWFBIZD9034-94-47 08:47:0089.7[facility] TtdfrisWHHABYANYK8987-89-44 08:47:00 Test Item Value Reference Range Interpretation Comments MCH (test code = MCH) 30.5 pg 27.0-31.0 [facility] TjddkifLXRGVOQEOP7510-37-17 08:47:0034.0[facility]ann[facility]MATOLOGY 2020-10-13 08:47:0013.6[facility] LegfqztQWONBRYXST6422-43-12 08:47:09751Edspsxwc YyawmwtXMDAYKBMOT4571-38-22 08:47:009.4[facility] JyoqsxxLTAIWVHFPI5183-27-15 08:47:0091.2[facility] QxwvfpjREGFWOIFMH0089-53-09 08:47:004.2[facility] Armando WQKYNZTARU4985-27-70 08:47:004.6[facility] UuvvxvkCJTHQKPBXW8329-12-83 08:47:00 13.4[facility] KjzzgdwYCUFNXEZWR7570-75-91 08:47:000.6[facility]annHEMATOLOGY 2020-10-13 08:47:000.7[facility] HermannCHEM VTAOO5287-67-65 08:47:00 Test Item Value Reference Range Interpretation Comments Glucose Lvl (test code = Glucose Lvl) 140 70-99 [facility] LQXDJ2308-97-91 08:47:00 Test Item Value Reference Range Interpretation Comments BUN (test code = BUN) 11 - [facility] XGIDS6762-82-38 08:47:00 Test Item Value Reference Range Interpretation Comments Creatinine Lvl (test code = Creatinine 1.43 0.50-1.40 Lvl) [facility] BXAZK0771-56-11 08:47:00 Test Item Value Reference Range Interpretation Comments Sodium Lvl (test code = Sodium Lvl) 135 135-145 [place] 627231-04-29 08:47:00 Test Item Value Reference Range Interpretation Comments Potassium Lvl (test code = Potassium 4.4 3.5-5.1 Lvl) [place] 627231-04-29 08:47:00 Test Item Value Reference Range Interpretation Comments Chloride Lvl (test code = Chloride Lvl) 102 95-109 [place] 627231-04-29 08:47:00 Test Item Value Reference Range Interpretation Comments CO2 (test code = CO2) 27 24-32 [place] 627231-04-29 08:47:00 Test Item Value Reference Range Interpretation Comments AGAP (test code = AGAP) 10.4 10.0-20.0 [place] 627231-04-29 08:47:00 Test Item Value Reference Range Interpretation Comments Calcium Lvl (test code = Calcium Lvl) 9.0 8.5-10.5 [place] 627231-04-29 08:47:00 Test Item Value Reference Range Interpretation Comments eGFR (test code = eGFR) 63 [facility] HospitalYjrvcoyOWLKEHFMAX6149-81-31 08:47:00 Test Item Value Reference Range Interpretation Comments WBC (test code = WBC) 14.7 3.7-10.4 [place] 135121-04-29 08:47:00 Test Item Value Reference Range Interpretation Comments RBC (test code = RBC) 4.69 4.70-6.10 [place] 135121-04-29 08:47:00 Test Item Value Reference Range Interpretation Comments Hgb (test code = Hgb) 14.3 14.0-18.0 [place] 135121-04-29 08:47:00 Test Item Value Reference Range Interpretation Comments Hct (test code = Hct) 42.1 42.0-54.0 [place] 135121-04-29 08:47:00 Test Item Value Reference Range Interpretation Comments MCV (test code = MCV) 89.7 80.0-94.0 [place] 135121-04-29 08:47:00 Test Item Value Reference Range Interpretation Comments MCH (test code = MCH) 30.5 pg 27.0-31.0 [place] 135121-04-29 08:47:00 Test Item Value Reference Range Interpretation Comments MCHC (test code = MCHC) 34.0 32.0-36.0 [place] 135121-04-29 08:47:00 Test Item Value Reference Range Interpretation Comments RDW (test code = RDW) 13.6 11.5-14.5 [place] 135121-04-29 08:47:00 Test Item Value Reference Range Interpretation Comments Platelet (test code = Platelet) 166 133-450 [place] 135121-04-29 08:47:00 Test Item Value Reference Range Interpretation Comments MPV (test code = MPV) 9.4 7.4-10.[address]04-29 08:47:00 Test Item Value Reference Range Interpretation Comments Segs (test code = Segs) 91.2 45.0-75.0 [place] 135121-04-29 08:47:00 Test Item Value Reference Range Interpretation Comments Lymphocytes (test code = Lymphocytes) 4.2 20.0-40.0 [place] 135121-04-29 08:47:00 Test Item Value Reference Range Interpretation Comments Monocytes (test code = Monocytes) 4.6 2.0-12.0 [place] 135121-04-29 08:47:00 Test Item Value Reference Range Interpretation Comments Neutrophils # (test code = Neutrophils 13.4 1.5-8.1 #) [place] 135121-04-29 08:47:00 Test Item Value Reference Range Interpretation Comments Lymphocytes # (test code = Lymphocytes 0.6 1.0-5.5 #) [place] 135121-04-29 08:47:00 Test Item Value Reference Range Interpretation Comments Monocytes # (test code 0.7 See_Comment [Aut omated message] The = Monocytes #) system which generated this result tra nsmitted reference range : <=0.8. The reference r buddy was not used to int erpret this result as normal/abnormal . [place] 782851-04-28 18:00:00 Test Item Value Reference Range Interpretation Comments Hep Signal to Cut-Off (test code = Hep 0.01 1 Signal to Cut-Off) [place] 782851-04-28 18:00:00Negative *NA*(10/12/20 1:00 PM) [facility] AbzklcsMULCIBERZF5700-06-69 18:00:00 Test Item Value Reference Range Interpretation Comments Hep C Ab (test code = Hep C Ab) NON-REACTIVE [facility] GybegswNLUPCVKNJW5374-38-66 18:00:00 Test Item Value Reference Range Interpretation Comments Hep Signal to Cut-Off (test code = Hep 0.01 1 Signal to Cut-Off) [facility] WqtwqzaEOSJAKVNKM4869-02-69 18:00:00 Test Item Value Reference Range Interpretation Comments [facility] HIV 4th GEN (test Negative *NA*(10/12/20 code = CDC HIV 4th 1:00 PM) GEN) [facility]annCHEM FEQTX7514-97-46 17:40:99243Faxzdrmf HermannCHEM PANEL 2020-10-12 17:40:0013[facility] HermannCHEM YIOTR5830-24-10 17:40:001.16[facility] HermannCHEM UOSOL6300-14-14 17:40:20443Mvtyqtql HermannCHEM BCHEX3415-52-17 17:40:004.1[facility] HermannCHEM WTWCP1748-75-56 17:40:20868Aeanzfww HermannCHEM FSLTA8017-94-49 17:40:0027[facility] HermannCHEM EJLLU7452-91-43 17:40:008.5 [facility]annCHEM ZLUWP1524-90-62 17:40:008.1[facility] HermannCHEM PANEL 2020-10-12 17:40:0082[facility] YojzczfVFNRBBUDVB8415-82-92 17:40:0013.4[facility] YxkflyiFUHTVHNHPS6812-73-32 17:40:005.02[facility] KgiqzriDSTPWDZMDT1725-91-92 17:40:0015.1[facility] TitgsrgTITWCLYMKB1185-51-12 17:40:0044.6[facility] [place] FPOFLEUZMV2946-80-29 17:40:0088.9[facility] HkcfggbRHBHRJECOG8805-81-24 17:40:00 Test Item Value Reference Range Interpretation Comments MCH (test code = MCH) 30.1 pg 27.0-31.0 [facility] BmsgrhmRGZXSAICST8290-79-44 17:40:0033.8[facility]annHEMATOLOGY 2020-10-12 17:40:0013.4[facility] IhotspuANSUILGEBC4220-80-22 17:40:25347Gbcgftoc MwgztdhTEZPJTIXCS8564-97-15 17:40:009.3[facility] UdqesagHCQGPSZRKC9791-54-05 17:40:00 Test Item Value Reference Range Interpretation Comments PT (test code = PT) 12.1 s 12.0-14.7 [facility]HykbqykBPZSBJBJMM2223-51-74 17:40:00 Test Item Value Reference Range Interpretation Comments INR (test code = INR) 0.90 1 0.85-1.17 [facility] CenterRzoavneKQETNBBMSN8051-39-36 17:40:00 Test Item Value Reference Range Interpretation Comments PTT (test code = PTT) 27.3 s 22.9-35.8 [facility] CenterRjtiirhDPWZRCDFPU5691-99-66 17:40:0088.2[facility]annHEMATOLOGY 2020-10-12 17:40:006.5[facility] BpgocjhRJPXWTRBNT8524-61-00 17:40:004.8[facility] UpnqbtgOQBJYJYYNI1240-12-91 17:40:000.3[facility] EcrhvkuYFPLDLXDDC8244-69-62 17:40:000.2[facility] [id number] 17:40:0011.8[facility] [id number] 17:40:000.9[facility] [id number] 17:40:000.6 [facility] [id number] 17:40:00 Test Item Value Reference Range Interpretation Comments Glucose Lvl (test code = Glucose Lvl) 100 70-99 [facility] [id number] 17:40:00 Test Item Value Reference Range Interpretation Comments BUN (test code = BUN) 13 7-22 [facility] [id number] 17:40:00 Test Item Value Reference Range Interpretation Comments Creatinine Lvl (test code = Creatinine 1.16 0.50-1.40 Lvl) [facility] [id number] 17:40:00 Test Item Value Reference Range Interpretation Comments Sodium Lvl (test code = Sodium Lvl) 138 135-145 [place] [id number] 17:40:00 Test Item Value Reference Range Interpretation Comments Potassium Lvl (test code = Potassium 4.1 3.5-5.1 Lvl) [place] [id number] 17:40:00 Test Item Value Reference Range Interpretation Comments Chloride Lvl (test code = Chloride Lvl) 107 95-109 [place] 627231-04-28 17:40:00 Test Item Value Reference Range Interpretation Comments CO2 (test code = CO2) 27 24-32 [place] 627231-04-28 17:40:00 Test Item Value Reference Range Interpretation Comments Calcium Lvl (test code = Calcium Lvl) 8.5 8.5-10.5 [place] 627231-04-28 17:40:00 Test Item Value Reference Range Interpretation Comments AGAP (test code = AGAP) 8.1 10.0-20.0 [place] [id number] 17:40:00 Test Item Value Reference Range Interpretation Comments eGFR (test code = eGFR) 82 [place] 135121-04-28 17:40:00 Test Item Value Reference Range Interpretation Comments WBC X 10x3 (test code = WBC X 10x3) 13.4 3.7-10.4 [place] 135121-04-28 17:40:00 Test Item Value Reference Range Interpretation Comments RBC X 10x6 (test code = RBC X 10x6) 5.02 4.70-6.10 [place] 135121-04-28 17:40:00 Test Item Value Reference Range Interpretation Comments Hgb (test code = Hgb) 15.1 14.0-18.0 [place] [address]-04-28 17:40:00 Test Item Value Reference Range Interpretation Comments Hct (test code = Hct) 44.6 42.0-54.0 [place] [address]-04-28 17:40:00 Test Item Value Reference Range Interpretation Comments MCV (test code = MCV) 88.9 80.0-94.[address]04-28 17:40:00 Test Item Value Reference Range Interpretation Comments MCH (test code = MCH) 30.1 pg 27.0-31.0 [place] 135121-04-28 17:40:00 Test Item Value Reference Range Interpretation Comments MCHC (test code = MCHC) 33.8 32.0-36.0 [place] 135121-04-28 17:40:00 Test Item Value Reference Range Interpretation Comments RDW (test code = RDW) 13.4 11.5-14.5 [place] 135121-04-28 17:40:00 Test Item Value Reference Range Interpretation Comments Platelet (test code = Platelet) 165 133-450 [place] 135121-04-28 17:40:00 Test Item Value Reference Range Interpretation Comments MPV (test code = MPV) 9.3 7.4-10.4 [place] 135121-04-28 17:40:00 Test Item Value Reference Range Interpretation Comments PT (test code = PT) 12.1 s 12.0-14.7 [place] 135121-04-28 17:40:00 Test Item Value Reference Range Interpretation Comments INR (test code = INR) 0.90 1 0.85-1.17 [place] 135121-04-28 17:40:00 Test Item Value Reference Range Interpretation Comments PTT (test code = PTT) 27.3 s 22.9-35.8 [place] 135121-04-28 17:40:00 Test Item Value Reference Range Interpretation Comments Segs (test code = Segs) 88.2 45.0-75.0 [place] 135121-04-28 17:40:00 Test Item Value Reference Range Interpretation Comments Lymphocytes (test code = Lymphocytes) 6.5 20.0-40.0 [place] 135121-04-28 17:40:00 Test Item Value Reference Range Interpretation Comments Monocytes (test code = Monocytes) 4.8 2.0-12.0 [place] [address]-04-28 17:40:00 Test Item Value Reference Range Interpretation Comments Eosinophils (test code = 0.3 See_Comment [A utomated message] The Eosinophils) system which ge nerated this result tra nsmitted reference range : <=4.0. The reference r buddy was not used to int erpret this result as normal/abnormal . [place] 135121-04-28 17:40:00 Test Item Value Reference Range Interpretation Comments Basophils (test code = 0.2 See_Comment [Aut omated message] The Basophils) system which ge nerated this result tra nsmitted reference range : <=1.0. The reference r buddy was not used to int erpret this result as normal/abnormal . [facility] [id number] 17:40:00 Test Item Value Reference Range Interpretation Comments Neutrophils # (test code = Neutrophils 11.8 1.5-8.1 #) [facility] [id number] 17:40:00 Test Item Value Reference Range Interpretation Comments Lymphocytes # (test code = Lymphocytes 0.9 1.0-5.5 #) [id number] 17:40:00 Test Item Value Reference Range Interpretation Comments Monocytes # (test code 0.6 See_Comment [Aut omated message] The = Monocytes #) system which generated this result tra nsmitted reference range : <=0.8. The reference r buddy was not used to int erpret this result as normal/abnormal . [facility] [id number] 17:18:00Not Detected (10/12/20 12:18 PM) [facility] [id number] 17:18:00 Test Item Value Reference Range Interpretation Comments Coronavirus (COVID-19) Not Detected (10/12/20 NED (test code = 12:18 PM) Coronavirus (COVID-19) NED) [facility] [id number] 16:40:00Negative (10/12/20 11:40 AM) [facility] P[place]on [id number] 16:40:00 Test Item Value Reference Range Interpretation Comments ABO/Rh (test code = ABO/Rh) A POS [facility] Pijon [id number] 16:40:00 Test Item Value Reference Range Interpretation Comments Antibody Scrn (test Negative (10/12/20 code = Antibody Scrn) 11:40 AM) [facility] Notes Date/Time Note Provider Source 2020-10-13 EXAM: CT LEFT ANKLE WITHOUT CONTRAST [facility] 01:45:09-00:00 EXAM: 3D RECONSTRUCTIONS Center DATE: 10/13/2020 at 0149 hours INDICATION: - pain s/p trauma COMPARISON: Left ankle 10/12 at 1324 hours. Intraoperative fluoroscopy 10/12/2020 at 1630 hours. TECHNIQUE: Volumetric CT of the ankle is acquired without contrast. Axial, coronal and sagittal images are provided. 3D volume-rendered reconstructions are created at the acquisition workstation. IV contrast: None. DLP: 308 mGy-cm UT SECTION: ER FINDINGS: Geophysics Scientist: External fixator noted in place. Distal tibia: Interval fixat ion of a medial malleolus fracture with 2 cannulated screws, projecting in satisfactory alignment. There is also minimal comminution of the posterior malleolus without signif icant displacement. There is a comminuted intra-articular fracture of the anterolateral margin of the distal tibia with slight widening of the distal tibiofibular syndesmosis. Distal fibula: Severely comm inuted, mildly distracted and transversely oriented fracture of the lateral malleolus tip extending to the level of the tibial plafond. Talus: Intact. Calcaneus: Intact with transcalcaneal external f ixation musa. Navicular: Intact. Cuboid: Intact. Cuneiforms: Intact. Visualized metatarsals: Intact. Soft tissues: Soft tissue sw elling about the ankle with small ankle joint effusion. Subcutaneous emphysema and ankle pneumarthrosis is expected postoperatively. IMPRESSION: 1. Interval pinning of a medial malleolu s fracture, in satisfactory alignment. 2. Severely comminuted and mildly distracted lat eral malleolus tip fracture. 3. Nondisplaced and comminuted posterior malleol us fracture. 4. Mildly displaced comminut ed fracture articular fracture of the anterolateral margin of the distal tibia with slight widening of the syndesmosis. 5. Ankle soft tissue postoperative changes and s mall joint effusion. 6. Transcalcaneal external fixator. 2020-10-12 EXAM: XR LEFT KNEE 3 VIEWS [facility] 13:15:00-00:00 EXAM: XR LEFT TIBIA-FIBULA 2 VIEWS Center EXAM: XR LEFT ANKLE 3 VIEWS EXAM: XR LEFT FOOT 3 VIEWS DATE: 10/12/2020 12:17 CDT INDICATION: - Fall, ankle deformity COMPARISON: X-ray ankle from 10/04/2020, 10:01 TECHNIQUE: 3 views of the kn ee, 2 views of the tibia-fibula, 3 views of the ankle, 3 views of the foot. FINDINGS: Plaster splint in usual posi tion about the distal lower extremity and foot, limiting the evaluation Knee: No acute fracture or m alalignment is identified. Mild left knee joint effusion is present. Tibia-fibula and ankle: Comp lete improvement of the alignment of the left ankle joint compared to the same day study from 10:01 AM. There is mildly displaced an d mildly comminuted transverse fracture of the left lateral malleolus with 4 mm residual inferior displacement of the distal fracture fragment. The alignment is near-anatomic. There is displaced oblique f racture of the medial malleolus with slight inferolateral displacement of the distal fracture fragment. A comminuted intra- articular fibular head fracture is seen at the proximal tibiofemoral articulation. Foot: No acute fracture or malalignment is ident ified. Soft tissues: No soft tissue abnormality is iden tified. IMPRESSION: 1. Markedly improved alignme nt of the previously noted ankle fracture dislocation following closed reduction and splinting. 2. Minimally displaced impac logan intra-articular fibular head fracture at the tibiofibular joint. 2020-10-12 EXAM: XR LEFT KNEE 3 VIEWS [facility] 13:15:00-00:00 EXAM: XR LEFT TIBIA-FIBULA 2 VIEWS Center EXAM: XR LEFT ANKLE 3 VIEWS EXAM: XR LEFT FOOT 3 VIEWS DATE: 10/12/2020 12:17 CDT INDICATION: - Fall, ankle deformity COMPARISON: X-ray ankle from 10/04/2020, 10:01 TECHNIQUE: 3 views of the kn ee, 2 views of the tibia-fibula, 3 views of the ankle, 3 views of the foot. FINDINGS: Plaster splint in usual posi tion about the distal lower extremity and foot, limiting the evaluation Knee: No acute fracture or m alalignment is identified. Mild left knee joint effusion is present. Tibia-fibula and ankle: Comp lete improvement of the alignment of the left ankle joint compared to the same day study from 10:01 AM. There is mildly displaced an d mildly comminuted transverse fracture of the left lateral malleolus with 4 mm residual inferior displacement of the distal fracture fragment. The alignment is near-anatomic. There is displaced oblique f racture of the medial malleolus with slight inferolateral displacement of the distal fracture fragment. A comminuted intra- articular fibular head fracture is seen at the proximal tibiofemoral articulation. Foot: No acute fracture or malalignment is ident ified. Soft tissues: No soft tissue abnormality is iden tified. IMPRESSION: 1. Markedly improved alignme nt of the previously noted ankle fracture dislocation following closed reduction and splinting. 2. Minimally displaced impac logan intra-articular fibular head fracture at the tibiofibular joint. 2020-10-12 EXAM: XR LEFT KNEE 3 VIEWS [facility] 13:15:00-00:00 EXAM: XR LEFT TIBIA-FIBULA 2 VIEWS Center EXAM: XR LEFT ANKLE 3 VIEWS EXAM: XR LEFT FOOT 3 VIEWS DATE: 10/12/2020 12:17 CDT INDICATION: - Fall, ankle deformity COMPARISON: X-ray ankle from 10/04/2020, 10:01 TECHNIQUE: 3 views of the kn ee, 2 views of the tibia-fibula, 3 views of the ankle, 3 views of the foot. FINDINGS: Plaster splint in usual posi tion about the distal lower extremity and foot, limiting the evaluation Knee: No acute fracture or m alalignment is identified. Mild left knee joint effusion is present. Tibia-fibula and ankle: Comp lete improvement of the alignment of the left ankle joint compared to the same day study from 10:01 AM. There is mildly displaced an d mildly comminuted transverse fracture of the left lateral malleolus with 4 mm residual inferior displacement of the distal fracture fragment. The alignment is near-anatomic. There is displaced oblique f racture of the medial malleolus with slight inferolateral displacement of the distal fracture fragment. A comminuted intra- articular fibular head fracture is seen at the proximal tibiofemoral articulation. Foot: No acute fracture or malalignment is ident ified. Soft tissues: No soft tissue abnormality is iden tified. IMPRESSION: 1. Markedly improved alignme nt of the previously noted ankle fracture dislocation following closed reduction and splinting. 2. Minimally displaced impac logan intra-articular fibular head fracture at the tibiofibular joint. 2020-10-12 EXAM: [facility]NEE [facility] EXAM: XR LEFT TIBIA-FIBULA 2 VIEWS Center EXAM: XR LEFT ANKLE 3 VIEWS EXAM: XR LEFT FOOT 3 VIEWS DATE: 10/12/2020 12:17 CDT INDICATION: - Fall, ankle deformity COMPARISON: X-ray ankle from 10/04/2020, 10:01 TECHNIQUE: 3 views of the kn ee, 2 views of the tibia-fibula, 3 views of the ankle, 3 views of the foot. FINDINGS: Plaster splint in usual posi tion about the distal lower extremity and foot, limiting the evaluation Knee: No acute fracture or m alalignment is identified. Mild left knee joint effusion is present. Tibia-fibula and ankle: Comp lete improvement of the alignment of the left ankle joint compared to the same day study from 10:01 AM. There is mildly displaced an d mildly comminuted transverse fracture of the left lateral malleolus with 4 mm residual inferior displacement of the distal fracture fragment. The alignment is near-anatomic. There is displaced oblique f racture of the medial malleolus with slight inferolateral displacement of the distal fracture fragment. A comminuted intra- articular fibular head fracture is seen at the proximal tibiofemoral articulation. Foot: No acute fracture or malalignment is ident ified. Soft tissues: No soft tissue abnormality is iden tified.
[2023-02-27] MEDS ORDERED: ONDANSETRON 4 MG/2 ML VIAL ONE (12:08)
[2023-02-27] MEDS ORDERED: FAMOTIDINE 20 MG/2 ML VIAL IV ONE (12:08)
[2023-02-27] MEDS ORDERED: NA CHLORIDE 0.9% 1,000 ML ONE (12:08)
[2023-02-27] MEDS ORDERED: KETOROLAC 30 MG/ML INJ ONE (12:08)
[2023-02-27 12:24] LABS: Absolute Lymphocytes (CBC) 0.9 K/uL (0.7-4.9); Hematocrit 45.3 % (39.6-49.0); Lymphocytes % 5.6 % (15.3-44.8); MCV 86.4 fL (80-100); MPV 8.8 fL (7.6-11.3); Platelets 200 thou/uL (152-406); RBC Red Blood Cell Count 5.24 M/uL (4.33-5.43)
[2023-02-27 12:41] LABS: Albumin 3.8 g/dL (3.4-5.0); Bilirubin Total 0.4 mg/dL (0.2-1.0); Protein, Total 7.2 g/dL (6.4-8.2)
--- NOTE | 2023-02-27 12:49 | RAD REPORT ---
EXAM DESCRIPTION: RAD - Ankle Left 3 View - 02/27/2023 12:31 pm CLINICAL HISTORY: PAIN COMPARISON: Ankle Left 2 View dated 10/12/2020 TECHNIQUE: Left ankle, 3 views. FINDINGS: Soft tissue swelling about the ankle. Cannulated screws fixating the medial malleolus. Def ormity of the distal fibula likely relating to a healed fracture. No evidence of acute fracture, disl ocation or periosteal reaction. No joint effusion seen. No joint space narrowing. IMPRESSION: No acute osseous abnormality. Swelling about the ankle. Chronic findings as above.
--- NOTE | 2023-02-27 12:52 | RAD REPORT ---
EXAM DESCRIPTION: CT - Abdomen Pelvis W Contrast - 02/27/2023 12:27 pm CLINICAL HISTORY: ABD PAIN COMPARISON: CT ABD PELVIS W CONTRAST dated 07/22/2007 TECHNIQUE: Thin cut axial CT imaging of the abdomen and pelvis was performed following intravenous a dministration of 100 mL Isovue 300. Multiplanar reformats were generated and reviewed. All CT scans are performed using dose optimization technique as appropriate and may include automated exposure control or mA/KV adjustment according to patient size. FINDINGS: No suspicious findings in the lung bases. The liver, spleen, adrenal glands, and pancreas show no suspicious findings. Gallbladder and biliary tree are also without suspicious finding. Symmetric renal function is seen with no hydronephrosis or suspicious renal mass. No dilated bowel loops or bowel wall thickening. Fluid filling throughout most of the colon proximall y, could relate to diarrheal state. No free air, free fluid or inflammatory stranding. No hernia, mas s or bulky lymphadenopathy. The urinary bladder is without significant finding. No suspicious bony findings. IMPRESSION: Fluid filling throughout most of the colon proximally, could relate to diarrheal state. No other acute intra-abdominal process.
--- NOTE | 2023-02-27 13:41 | EDPHYS ---
Physician Documentation [facility] Name: Ousmane Bishop Age: 37 yrs Sex: Male : 1985 Arrival Date: 02/27/2023 Time: 11:41 Bed 9 Private MD: ED Physician Walker Schilling HPI: 02/27 14:05 This 37 yrs old Male presents to ER via Ambulatory with complaints of kb Vomiting/Diarrhea, Ankle Injury. 14:05 The patient presents to the emergency department with nausea, vomiting, diarrhea. kb Onset: The symptoms/episode began/occurred this morning. Possible causes: unknown. The symptoms are aggravated by nothing. The symptoms are alleviated by nothing. Associated signs and symptoms: Pertinent positives: diarrhea, nausea, vomiting. Severity of symptoms: At their worst the symptoms were moderate in the emergency department the symptoms are unchanged. The patient has not experienced similar symptoms in the past. The patient has not recently seen a physician. Pt is a 37 year old male who presents for n/v/d that started this morning. Also reports pain and swelling to left ankle after twisting it this morning. denies fever. Historical: - Allergies: 11:50 No Known Allergies; ap3 - PMHx: 11:50 None; ap3 - Immunization history:: Client reports having NOT received the Covid vaccine. - Social history:: Smoking status: Reported history of juuling and/or vaping. ROS: 14:03 Constitutional: Negative for fever, chills, and weight loss. kb 14:03 Abdomen/GI: Positive for abdominal pain, nausea, vomiting, and diarrhea, Negative for constipation. 14:03 MS/extremity: Positive for pain, swelling, tenderness, of the left medial ankle. 14:03 All other systems are negative. Exam: 14:03 Constitutional: This is a well developed, well nourished patient who is awake, alert, kb and in no acute distress. Head/Face: Normocephalic, atraumatic. ENT: Moist Mucous membranes Cardiovascular: Regular rate Respiratory: Respirations even and unlabored. No increased work of breathing. Talking in full sentences Skin: Warm, dry with normal turgor. Normal color. Neuro: Awake and alert, GCS 15, oriented to person, place, time, and situation. Moves all extremities. Normal gait. 14:03 Abdomen/GI: Inspection: abdomen appears normal, Bowel sounds: normal, Palpation: soft, in all quadrants, mild abdominal tenderness, in the left upper quadrant and left lower quadrant. 14:03 Musculoskeletal/extremity: Extremities: grossly normal except: noted in the left medial ankle: pain, swelling, tenderness, ROM: intact in all extremities, Circulation is intact in all extremities. Sensation intact. Weight bearing: able to fully bear weight. Vital Signs: 11:47 BP 132 / 93; Pulse 76; Resp 18; Temp 98.1; Pulse Ox 100% ; Weight 108.86 kg; Pain 8/10; ap3 11:47 Pain Scale: Adult ap3 MDM: 11:45 Patient medically screened. kb 14:04 Differential diagnosis: Nonspecific abd pain, gastritis, diverticulitis, viral kb gastroenteritis, sprain, fracture. Data reviewed: vital signs, nurses notes. Historians other than the Patient: Spouse/Significant Other: spouse. Counseling: I had a detailed discussion with the patient and/or guardian regarding the historical points, exam findings, and any diagnostic results supporting the discharge/admit diagnosis, lab results, radiology results, the need for outpatient follow up, a family practitioner, to return to the emergency department if symptoms worsen or persist or if there are any questions or concerns that arise at home. 02/27 11:54 Order name: CBC with Diff; Complete Time: 12:38 kb 02/27 11:54 Order name: CMP; Complete Time: 12:42 kb 02/27 11:54 Order name: Lipase; Complete Time: 12:42 kb 02/27 11:54 Order name: CT Abd/Pelvis - IV Contrast Only; Complete Time: 12:59 kb 02/27 11:54 Order name: Ankle Left 3 View XRAY; Complete Time: 12:59 kb 02/27 11:54 Order name: IV Saline Lock; Complete Time: 12:17 kb 02/27 11:54 Order name: Labs collected and sent; Complete Time: 12:17 kb Administered Medications: 12:18 Drug: NS 0.9% IV 1000 ml Route: IV; Rate: 1 bolus; Site: left antecubital; kc6 13:52 Follow up: Response: No adverse reaction; IV Status: Completed infusion; IV Intake: kc6 1000ml 12:18 Drug: Famotidine IVP 20 mg Route: IVP; Site: left antecubital; kc6 13:24 Follow up: Response: No adverse reaction kc6 12:18 Drug: TORadol - Ketorolac IVP 15 mg Route: IVP; Site: left antecubital; kc6 13:24 Follow up: Response: No adverse reaction; Pain is decreased kc6 12:18 Drug: Ondansetron IVP 4 mg Route: IVP; Site: left antecubital; kc6 13:24 Follow up: Response: No adverse reaction; Nausea is decreased; Vomiting decreased kc6 Disposition: 14:36 Co-signature as Attending Physician, Walker Schilling DO I was immediately available on-site ms3 in the Emergency Department for consultation in the care of the patient. Disposition Summary: 02/27/23 13:40 Discharge Ordered Location: Home kb Condition: Stable kb Diagnosis - Nausea with vomiting, unspecified kb - Diarrhea, unspecified kb - Sprain of ankle kb Followup: kb - With: Emergency Department - When: As needed - Reason: Worsening of condition Followup: kb - With: Private Physician - When: 2 - 3 days - Reason: Recheck today's complaints, Continuance of care, Re-evaluation by your physician Discharge Instructions: - Discharge Summary Sheet kb - Food Choices to Help Relieve Diarrhea, Adult kb - Viral Gastroenteritis, Adult, Rybk-zl-[id number] kb - Ankle Sprain, Wnbb-wd-[id number] kb - Nausea and Vomiting, Adult, [id number]-jm-[id number] kb - Diarrhea, Adult, Jzdc-uc-Omyf kb Forms: - Work release form kb - Medication Reconciliation Form kb - Thank You Letter kb - Antibiotic Education kb - Prescription Opioid Use kb - Patient Portal Instructions kb - Leadership Thank You Letter kb Prescriptions: - ondansetron 4 mg Oral Tablet,disintegrating - take 1 tablet by ORAL route every 6 hours As needed; 12 tablet; Refills: 0, kb Product Selection Permitted - Diclofenac Sodium 75 mg Oral tablet,delayed release (DR/EC) - take 1 tablet by ORAL route 2 times per day As needed; 30 tablet; Refills: 0, kb Product Selection Permitted Signatures: Dispatcher [employer] Eden Coreas, Jessica Davila RN RN ap3 Walker Schilling DO DO ms3 Michelle Guevara RN RN kc6
--- NOTE | 2023-02-27 13:41 | ER ---
Nurse's Notes [facility] Name: Ousmane Bishop Age: 37 yrs Sex: Male : 1985 Arrival Date: 02/27/2023 Time: 11:41 Bed 9 Private MD: Diagnosis: Nausea with vomiting, unspecified;Diarrhea, unspecified;Sprain of ankle Presentation: 02/27 11:47 Chief complaint: Patient states: he has been having nausea, vomiting and diarrhea since ap3 this morning. patient is complaining of upper abdominal pain. patient also reports that while walking to the restroom, he twisted his ankle that had an existing injury. Coronavirus screen: At this time, the client does not indicate any symptoms associated with coronavirus-19. Ebola Screen: No symptoms or risks identified at this time. Initial Sepsis Screen: Does the patient meet any 2 criteria? No. Patient's initial sepsis screen is negative. Does the patient have a suspected source of infection? Yes: Acute abdominal pain. Risk Assessment: Do you want to hurt yourself or someone else? Patient reports no desire to harm self or others. Onset of symptoms was February 27, 2023. 11:47 Method Of Arrival: Ambulatory ap3 11:47 Acuity: HAL 3 ap3 Triage Assessment: 11:50 General: Appears in no apparent distress. Behavior is calm, cooperative, appropriate ap3 for age, Reports chills for feeling ill for fatigue for. Pain: Complains of pain in abdomen and left medial ankle. Neuro: Level of Consciousness is awake, alert, obeys commands, Oriented to person, place, time, situation, Appropriate for age. Cardiovascular: Patient's skin is warm and dry. Respiratory: Airway is patent Respiratory effort is even, unlabored, Respiratory pattern is regular, symmetrical. GI: Reports upper abdominal pain, diarrhea, nausea, vomiting. Historical: - Allergies: 11:50 No Known Allergies; ap3 - PMHx: 11:50 None; ap3 - Immunization history:: Client reports having NOT received the Covid vaccine. - Social history:: Smoking status: Reported history of juuling and/or vaping. Screenin:51 [facility] ED Fall Risk Assessment (Adult) History of falling in the last 3 months, ap3 including since admission No falls in past 3 months (0 pts). Abuse screen: Denies threats or abuse. Nutritional screening: No deficits noted. Tuberculosis screening: No symptoms or risk factors identified. Assessment: 12:32 General: Appears in no apparent distress. comfortable, Behavior is calm, cooperative, kc6 appropriate for age. Pain: Complains of pain in left foot. Neuro: Level of Consciousness is awake, alert, obeys commands, Oriented to person, place, time, situation, Appropriate for age. Cardiovascular: Capillary refill < 3 seconds. Respiratory: Airway is patent Trachea midline Respiratory effort is even, unlabored, Respiratory pattern is regular, symmetrical. GI: Abdomen is flat, non-distended, Bowel sounds present X 4 quads. Abd is soft and non tender X 4 quads. Reports diarrhea, nausea, vomiting. : No signs and/or symptoms were reported regarding the genitourinary system. EENT: No signs and/or symptoms were reported regarding the EENT system. Derm: No signs and/or symptoms reported regarding the dermatologic system. Skin is intact, is healthy with good turgor, Skin is pink, warm \T\ dry. Musculoskeletal: No signs and/or symptoms reported regarding the musculoskeletal system. Circulation, motion, and sensation intact. Capillary refill < 3 seconds, Range of motion: intact in all extremities. 13:32 Reassessment: Patient appears in no apparent distress at this time. No changes from kc6 previously documented assessment. Patient and/or family updated on plan of care and expected duration. Pain level reassessed. Patient is alert, oriented x 3, equal unlabored respirations, skin warm/dry/pink. Vital Signs: 11:47 BP 132 / 93; Pulse 76; Resp 18; Temp 98.1; Pulse Ox 100% ; Weight 108.86 kg; Pain 8/10; ap3 11:47 Pain Scale: Adult ap3 ED Course: 11:45 Patient arrived in ED. im 11:45 Eden Payan FNP-C is PHCP. kb 11:45 Walker Schilling DO is Attending Physician. kb 11:50 Triage completed. ap3 11:51 Arm band placed on left wrist. ap3 11:55 Michelle Guevara, MARCIA is Primary Nurse. kc6 12:18 Inserted saline lock: 20 gauge in right antecubital area, using aseptic technique. kc6 Blood collected. 12:28 CT Abd/Pelvis - IV Contrast Only In Process Unspecified. EDMS 12:31 Patient has correct armband on for positive identification. Bed in low position. Call kc6 light in reach. Side rails up X 1. Adult w/ patient. Client placed on continuous cardiac and pulse oximetry monitoring. NIBP monitoring applied. 12:32 Ankle Left 3 View XRAY In Process Unspecified. EDMS 13:53 No provider procedures requiring assistance completed. IV discontinued, intact, kc6 bleeding controlled, No redness/swelling at site. Pressure dressing applied. Administered Medications: 12:18 Drug: NS 0.9% IV 1000 ml Route: IV; Rate: 1 bolus; Site: left antecubital; kc6 13:52 Follow up: Response: No adverse reaction; IV Status: Completed infusion; IV Intake: kc6 1000ml 12:18 Drug: Famotidine IVP 20 mg Route: IVP; Site: left antecubital; kc6 13:24 Follow up: Response: No adverse reaction kc6 12:18 Drug: TORadol - Ketorolac IVP 15 mg Route: IVP; Site: left antecubital; kc6 13:24 Follow up: Response: No adverse reaction; Pain is decreased kc6 12:18 Drug: Ondansetron IVP 4 mg Route: IVP; Site: left antecubital; kc6 13:24 Follow up: Response: No adverse reaction; Nausea is decreased; Vomiting decreased kc6 Medication: 13:53 VIS not applicable for this client. kc6 Intake: 13:52 IV: 1000ml; Total: 1000ml. kc6 Outcome: 13:40 Discharge ordered by . lily 13:53 Discharged to home ambulatory, with significant other. kc6 13:53 Condition: stable 13:53 Discharge instructions given to patient, Instructed on discharge instructions, follow up and referral plans. medication usage, Demonstrated understanding of instructions, follow-up care, medications, Prescriptions given X 2. 13:53 Patient left the ED. kc6 Signatures: Dispatcher [employer] EDMS Eden Payan, Jessica Davila RN RN [id number] Michelle Guevara RN RN kc6 Denise Nagel
[2023-02-27 14:11] VITALS: BP 132/93; TEMP 98.1; O2SAT 100
== END 2023-02-27 13:53 | disposition home or self-care (01) ==
LOC: ER 11:41
DX: R11.2 Nausea with vomiting, unspecified (principal); R19.7 Diarrhea, unspecified; S93.402A Sprain of unspecified ligament of left ankle, initial encounter
CPT/HCPCS: 85025; 36415; 83690; 80053; 74177; 73610; Q9967; J2405; J7030; 96361; 96374; 96375; 99284